=== PATIENT | female | born 1960 | race African-American/Black ===

== ENCOUNTER 2016-06-22 15:33 | Emergency (ER) | payer BC ==
[~2016-06-22] VITALS: Ht 157.5 cm; Wt 111.1 kg
[~2016-06-22 15:33] MED LIST: ACTOS30 MG PO; ALLEGRA D 12 HO1 TER PO; ALLEGRA60 MG PO; ALPRAZOLAM0.25 MG PO; AMARYL 2MG TABLE2 MG PO; AMARYL 4MG. TAB4 MG PO; ATENOLOL25 M1; ATENOLOL25 MG PO; AUGMENTIN 875-1 EACH PO; AZITHROMYCIN250 MG PO; BIOTIN1000 MCG PO; BRINTELLIX10 MG PO; CARAFATE1 GM PO; CELEXA10 MG PO; CIPRO 500MG TA500 MG PO; CIPROFLOXACIN500 MG PO; CLINDAMYCIN HC150 MG PO; DARVOCET-N 1001 EACH PO; DICLOFENAC 50MG50 MG PO; DIFLUCAN 100MG100 MG PO; DIFLUCAN150 MG PO; ESOMEPRAZOLE MA40 M1 PO; FLAGYL 500MG.500 MG PO; FLEXERIL10 MG PO; FLONASE 50 MCG16 GM; GABAPENTIN 100100 MG PO; GLIMEPIRIDE 4MG4 MG; GLIMEPIRIDE 4MG4 MG PO; HYDROCODONE1 TABLET PO; IBUPROFEN200 MG PO; JANUVIA100 MG PO; KEFLEX 500MG.500 MG PO; LORTAB 5/500 501 TAB PO; LOSARTAN POTAS100 MG PO; MEDROL 4MG. DOSE4 MG PO; METFORMIN500 MG PO; MIRALAX17 GM/PACK PO; MOBIC15 MG PO; OXYBUTYNIN5 MG PO; PEPCID40 MG PO; PERCOGESIC1 TAB PO; PLAVIX75 MG PO; PREDNISONE 10MG10 MG PO; PRISTIQ50 MG PO; SKELAXIN 800MG800 MG PO; TAMIFLU 75MG CA75 MG PO; TESSALON PERLE100 M1 PO; TESSALON PERLE100 MG PO; TESSALON PERLE200 MG PO; VENLAFAXINE HYD75 M1 PO; VIBRAMYCIN 100100 MG PO; VISTARIL25 MG PO; VITAMIN A8000 IU PO; VITAMIN D31000 IU PO; XANAX 0.25MG0.25 MG PO; ZANTAC 150150 MG PO; ZITHROMAX Z PA250 MG PO; ZYRTEC-D 12HR 51 TER PO
--- NOTE | 2016-06-22 15:56 | Emergency Room Report ---
History of Present Illness Time Seen by [id number] Presenting Problem in Triage Pt arrived:Wheelchair Presenting Problem:PT STATES HER RIGHT HIP AND RIGHT LEG HAVE HURT FOR 4 DAYS. WEDNESDAY STATES SHE HEARD A POP SOUND WHEN SHE WAS WALKING. STATES SHE IS HAVING DIFFICULTY WALKING. 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 N Clinical Suspician of Infection? N Mental Status: 1 - Regular (Normal Baseline) Sepsis Risk:Low Sepsis Risk Have you (or family members/close friends) recently traveled outside the [place]? N If Yes, where/when: Have you had exposure to infectious disease within the past month? TB? Other? Specify: Patient's been having some RIGHT hip pain couple days ago she felt a pop in her hip pain is worse and radiates down her leg no urinary or bowel incontinence complaints no complaints of abdominal pain as moderate achy RIGHT hip pain worse with ambulation and some numbness that goes down her posterior thigh ALLERGIES Coded Allergies: Sulfa (Sulfonamide Antibiotics) (Mild, HIVES, ITCHING 04/06/16) amoxicillin (From AUGMENTIN) (Mild, NA-NAUSEA 05/29/16) aspirin (Mild, HIVES, ITCHING 04/06/16) clavulanic acid (From AUGMENTIN) (Mild, NA-NAUSEA 05/29/16) hydrocodone (From NORCO) (Mild, HIVES, ITCHING 04/06/16) naproxen (Mild, HIVES, ITCHING 04/06/16) Home Medications Active Scripts Oseltamivir Phosphate (Tamiflu 75MG Capsule) 75 MG PO BID #10 CAP Prov: 05/30/16 Reported Medications Atenolol (Atenolol) 25 MG PO DAILY Metformin HCL (Metformin) 500 MG PO BID Losartan Potassium (Losartan 100MG) 25 MG PO DAILY OXYBUTYNIN CHLORIDE (Oxybutynin 5MG Tab) 5 MG PO BID DICLOFENAC SODIUM (Diclofenac 50MG) 75 MG PO BID Alprazolam (Xanax 0.25MG) 0.25 MG PO BID Glimepiride (Glimepiride 4MG Tablet) 4 MG PO DAILY #30 Fluticasone Propionate (Flonase 50 Mcg Nasal Rodney) 1 SPRAY NA PRN PRN ALLERGIES 60 Days Esomeprazole Magnesium 40 MG PO DAILY #30 Ranitidine Hcl (Zantac) 150 MG PO BID History Medical History General CAD? No Angina: Yes [place]: No Hypertension? Yes Hyperlipidemia? No CHF? No DVT? No PE? No COPD? No Asthma? No Anemia? Yes GERD? No Gastric ulcers? Yes GI Bleed? No Hernia? No Thyroid Problems? No Hypothyroidism? No CVA? No Seizures? No Diabetes? Yes Insulin Dependent: No Insulin Pump: No Home FSBS? Yes Renal Insuffiency? No End Stage Renal Disease? No UTI? Yes Stones? No BPH? No GB Disease: No Nephritic Syndrome? No Asplenia? No Hepatitis? No Sickle Cell Disease? No Arthritis? Yes Migraines? No Cataracts? No Glaucoma? No MRSA? No HIV? No TB? No Anxiety? Yes Depression? Yes Cancer? No More? Yes Additional hx: DEGENERATIVE ARTHRITIS, DEPRESSION, ANXIETY. 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 Eyes: conjunctiva/corneas clear ENT: Mucous membranes moist. Neck: No jugular venous distention. Extremities: no edema Musculoskeletal: right hip tenderness, and tenderness at the RIGHT sciatic notch RIGHT leg raise is negative producing pain only in the buttock strength 5 out of 5 sensations intact light touch Skin: No rashes or lesions to exposed skin. Neurologic: Alert. No gross focal deficits Psychiatric: Normal affect (Jeovany PITTS, [place]) General Appearance normal appearance Respiratory Status No: respiratory distress. Cardiovascular normal exam Neurologic alert Medical Decision Making LABS/Meds/Orders Pt receiving controlled substance in ED? Yes Comment RIGHT hip x-ray read by myself shows no acute disease no fracture shows some arthritis Results/Orders Current Medication Orders Sig/Octavio Start time Last Medication Dose Route Stop Time Status Admin Acetaminophen/ 1 TAB .[NOW] 06/22 1645 r Hydrocodone Bitart PO Orders Procedure Date/time Status HIP RT 2-3V W/PELVIS IF PERFOR 06/22 1547 Active Departure Departure Time of Disposition 1639 Disposition DC Home or Self Care(routine) Clinical Impression Primary Impression: Right hip pain Condition STABLE Referrals Karan PITTS,Germán Chakraborty (Family) Patient Instructions DI for Sciatica Prescriptions Current Visit Scripts OXYCODONE HCL/ACETAMINOPHEN (Percocet 5-325 MG Tablet) 1 TAB PO TIDP PRN BREAKTHROUGH MOD TO SEV PAIN #10 TAB ED Critical Care Critical Care No If Critical Care minutes are documented, the time involved in the performance of seperately reportable procedures was not counted toward critical care time documented. I directly delivered medical care to this critically ill and/or injured patient. Timely evaluation and treatment was necessary to address the significant organ system(s) dysfunction present in this patient. at 1645
[2016-06-22] MEDS ORDERED: PERCOCET1 TAB PO (16:44)
[2016-06-22 16:54] VITALS: BP 182/99
--- NOTE | 2016-06-22 18:12 | RADIOLOGY REPORT PS360 ---
HIP RT 2-3V W/PELVIS IF PERFOR COMPARISON: Right hip 01/18/2016 HISTORY: Right hip pain TECHNIQUE: AP pelvis cone-down AP and frog views right hip FINDINGS: There is mild sclerosis of the iliac side of both SI joints. Both hips are normally articulated. There is very minor spurring of the acetabulum both superiorly and inferiorly. There is no significant joint space narrowing. There are no soft tissue calcifications. IMPRESSION: Findings suggesting mild bilateral sacroiliitis, there is a very mild osteoarthritic change right hip
== END 2016-06-22 16:55 | disposition home or self-care (01) ==
LOC: ER 15:33
DX: M25.551 Pain in right hip (principal); I10 Essential (primary) hypertension; Z72.0 Tobacco use

== ENCOUNTER 2016-12-03 15:48 | Emergency (ER) | payer BC ==
[~2016-12-03] VITALS: Ht 157.5 cm; Wt 110.2 kg
[~2016-12-03 15:48] MED LIST changes: +CRESTOR10 MG PO; +DULOXETINE 30MG30 MG FT; +FOLBIC RF1 TAB PO; +NEXIUM40 MG/PACK PO; +PERCOCET1 TAB PO; +TYLENOL WITH CO1 TA1 PO
[2016-12-03 16:07] LABS: HEMOGLOBIN 13.4 g/dL (12.2-16.2); LYMPH # 2.5 K/mm3 (0.7-4.5); LYMPH % 28.3 % (10-50.0)
--- NOTE | 2016-12-03 16:10 | Emergency Room Report ---
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 Clinical Suspician of Infection? Mental Status: Sepsis Risk: Have you (or family members/close friends) recently traveled outside the [place]? If Yes, where/when: Have you had exposure to infectious disease within the past month? TB? Other? Specify: Patient reports has had a facial droop for one month. She also states that over the past few months she has had episodes of right arm weakness and mouth numbness intermittently, unspecified time frame, but always self resolving, and awakened this morning with similar symptoms, which have not gone away. Last known normal was last night at bedtime. ALLERGIES Coded Allergies: Sulfa (Sulfonamide Antibiotics) (Mild, HIVES, ITCHING 04/06/16) amoxicillin (From AUGMENTIN) (Mild, NA-NAUSEA 05/29/16) aspirin (Mild, HIVES, ITCHING 04/06/16) clavulanic acid (From AUGMENTIN) (Mild, NA-NAUSEA 05/29/16) hydrocodone (From NORCO) (Mild, HIVES, ITCHING 04/06/16) naproxen (Mild, HIVES, ITCHING 04/06/16) Home Medications Reported Medications Atenolol (Atenolol) 25 MG PO DAILY Metformin HCL (Metformin) 500 MG PO BID Losartan Potassium (Losartan 100MG) 25 MG PO DAILY OXYBUTYNIN CHLORIDE (Oxybutynin 5MG Tab) 5 MG PO BID Alprazolam (Xanax 0.25MG) 0.25 MG PO BID Glimepiride (Glimepiride 4MG Tablet) 4 MG PO DAILY #30 Duloxetine Hcl (Duloxetine 30MG Capsule) 20 MG FT DAILY Rosuvastatin Calcium (Crestor) 10 MG PO QHS Esomeprazole Magnesium (Nexium) 40 MG PO DAILY CHOLECALCIFEROL (VITAMIN D3) (Vitamin D) 50,000 IUNITS PO DAILY B12/LEVOMEFOLATE CALCIUM/B-6 (Folbic Rf Tablet) 1 TAB PO DAILY DICLOFENAC SODIUM (Diclofenac 50MG) 75 MG PO BID PRN PAIN DULOXETINE HCL (Cymbalta) 20 MG PO DAILY History Medical History General CAD? No Angina: Yes [place]: No Hypertension? Yes Hyperlipidemia? No CHF? No DVT? No PE? No COPD? No Asthma? No Anemia? Yes GERD? No Gastric ulcers? Yes GI Bleed? No Hernia? No Thyroid Problems? No Hypothyroidism? No CVA? No Seizures? No Diabetes? Yes Insulin Dependent: No Insulin Pump: No Home FSBS? Yes Renal Insuffiency? No End Stage Renal Disease? No UTI? Yes Stones? No BPH? No GB Disease: No Nephritic Syndrome? No Asplenia? No Hepatitis? No Sickle Cell Disease? No Arthritis? Yes Migraines? No Cataracts? No Glaucoma? No MRSA? No HIV? No TB? No Anxiety? Yes Depression? Yes Cancer? No More? Yes Additional hx: DEGENERATIVE ARTHRITIS, DEPRESSION, ANXIETY. Immunization Hx DT/Tetanus 1-4 YRS Flu LAST YEAR Pneumonia NEVER Surgical Hx Previous Surgery?Y D & C Tubal Ligation CONE BX BARTHOLIN'S CYST HYSTERECTOMY 2000 CARPEL TUNNEL SURGERY HEART CATH ENDOCSOPY COLONOSCOPY Family History Family Hx Diabetes Yes CAD No Hypertension No Hyperlipidemia No Cancer No TB Yes Social History Smoking Hx Packs/day < 1 Pack Alcohol Alcohol: No Review of Systems All Other Systems Reviewed and Negative Psychiatric/Neurological see HPI Physical Exam Vital Signs Vital Signs Date Time Temp Pulse Resp B/P Pulse O2 O2 Flow FiO2 Ox Delivery Rate 12/03 1718 72 20 159/100 95 12/03 1636 78 20 153/100 95 12/03 1554 98.2 79 20 167/94 96 General Appearance normal appearance, WD/WN, no apparent distress Eye Exam - bilateral eye normal exam, bilateral eye PERRL, bilateral eye EOMI Neck normal inspection, non-tender, supple, full range of motion Respiratory Status Yes: trachea midline, chest symmetrical, non tender chest. No: respiratory distress, tender on palpation, use of accessory muscles, pain on inspiration, pain on expiration, productive cough, non productive cough. Lung Sounds bilateral: normal breath sounds, lungs clear. Cardiovascular normal exam, regular rate/rhythm, no peripheral edema, no gallop, no JVD, no murmur, no rub, normal peripheral pulses Gastrointestinal normal bowel sounds, normal exam, non tender, soft, no organomegaly, no pulsatile mass, no guarding, no rebound Extremities non-tender, normal range of motion, normal inspection, no calf tenderness, no pedal edema Strength 4 Upper Ext (R), 5 Upper Ext (L), 5 Lower Ext (L), 5 Lower Ext (R) Neurologic alert, NIHSS 4: see above; has subjective numbness R cheek; has slight facial droop on right; finger to nose is slow but normal bilaterally but has a little bit of drift, RUE. Glascow Coma Scale Glascow Coma Scale Response Value EYE response: 4 Spontaneously 4 MOTOR response: 6 OBEYS 6 VERBAL response: 5 Oriented & Converses 5 Total 15 Reflexes DTR 2+ ankle (R), 2+ ankle (L) Skin intact, normal color, warm/dry Stroke Score/Tx Stroke Evaluation Initial symptoms indicative of possible stroke? Yes NIH STROKE SCORE NIH STROKE SCORE Response Value 1a.Level of Consciousness ALERT 0 1b.LOC Questions ANSWERS BOTH CORRECTLY 0 1c.LOC Commands OBEYS BOTH CORRECTLY 0 2 .Best Gaze NORMAL 0 3 .Visual NO VISUAL LOSS 0 4 .Facial Palsy MINOR 1 5a.Motor Arm Left NO DRIFT 0 5b.Motor Arm Right DRIFT 1 6a.Motor Leg Left NO DRIFT 0 6b.Motor Leg Right NO DRIFT 0 7 .Limb Ataxia ABSENT 0 8 .Sensory PARTIAL LOSS 1 10.Dysarthria NORMAL ARTICULATION 0 ED.NIH11 NO NEGLECT 0 Total 3 Treatment Consideration t-PA ordered? No Medical Decision Making LABS/Meds/Orders Pt receiving controlled substance in ED? No Results/Orders Laboratory Tests 12/03/16 1635: POC Glucose 110 12/03/16 1555: Sodium 141, Potassium 4.0, Chloride 104, Carbon Dioxide 28, BUN 19 H, Creatinine 0.9, Estimated Creat Clear 123, Estimated GFR (MDRD) 65, Glucose 100, Calcium 9.8, Total Bilirubin 0.3, AST 26, ALT 29, Alkaline Phosphatase 139 H, Creatine Kinase 66, CK-MB (CK-2) Rel Index 1.2, CK and CKMB Interp 0.8, Troponin I < 0.02, Total Protein 9.1 H, Albumin 3.7, Globulin 5.4 H, Albumin/Globulin Ratio 0.7 L, WBC 8.9, RBC 4.68, Hgb 13.4, Hct 40.7, MCV 87.1, RDW 15.3, Plt Count 338, MPV 7.9, Gran % 61.7, Gran # 5.5, Lymphocytes % 28.3, Monocytes % 5.6 , Eosinophils % 3.7, Basophils % 0.6, Lymphocytes # 2.5, Monocytes # 0.5, Eosinophils # 0.3, Basophils # 0.1, PUBS MCHC 32.9, MCH 28.6 Current Medication Orders Sig/Octavio Start time Last Medication Dose Route Stop Time Status Admin Sodium Chloride 10 ML PRN PRN 12/03 1600 AC IV 12/04 1559 Orders Procedure Date/time Status DIET-NOTHING BY MOUTH 12/03 D Active FINGERSTICK BLOOD SUGAR 12/03 1635 Complete 12 LEAD EKG-BESSON (INITIAL) 12/03 1600 Active ELECTROCARDIOGRAM REQUEST 12/[address] HEAD REQ 12/03 1600 Complete IV SALINE LOCK 12/03 1600 Active CBC WITH AUTO DIFF 12/03 1600 Complete CARDIAC ENZYMES 12/03 1600 Complete CHEM 12 PROFILE 12/03 1600 Complete XRAY/CT/US XRAY/CT/US XR interpretation by reviewed by me (report reviewed) Xray Results normal/NAD, no infiltrates, normal heart size, normal lung inflation shelley CT head CT interpretation by reviewed by me Time results known: 1631 CT Results normal/NAD (no acute findings per rad) Consult MD Physician Consult Consult/PCP Dr. Linton stroke: send to [facility] for further eval Time Called 1652 Reason Neuro eval/care Progress ED Progress Notes Time 1723 Comment Patient refusing transfer. Unable to admit to this facility as no neurology consultation service. Patient and family discussing options with recommendation from this MD as well as neurologist on stroke team at for evaluation at by neurology service. Departure Departure Time of Disposition 1732 Disposition DC/XFER from ER to [facility] Clinical Impression Primary Impression: Right arm weakness Secondary Impressions: Right facial numbness Condition STABLE Referrals Karan PITTS,Germán Chakraborty (Family) ED Critical Care Critical Care No at [id number]
--- NOTE | 2016-12-03 16:24 | RADIOLOGY REPORT PS360 ---
CHEST-AP VIEW ONLY HISTORY: RIGHT SIDED WEAKNESS ORDERING PHYSICIAN: Carli Wilks MD PATIENT AGE: 56 years COMPARISON: None available FINDINGS: The cardiomediastinal silhouette and pulmonary vascularity are within normal limits. The lungs are clear without infiltrates, suspicious nodules, or pleural effusions. No acute bony abnormalities. IMPRESSION: Negative chest, no acute finding
[2016-12-03] MEDS ORDERED: DICLOFENAC 50MG50 MG PO (16:25)
[2016-12-03] MEDS ORDERED: CYMBALTA20 MG PO (16:26)
--- NOTE | 2016-12-03 16:28 | RADIOLOGY REPORT PS360 ---
CT HEAD W/O CONTRAST HISTORY: RIGHT SIDED WEAKNESS DIZZINESS ORDERING PHYSICIAN: Carli Wilks MD PATIENT AGE: 56 years COMPARISON: 02/18/2012 TECHNIQUE: Axial images obtained without contrast. Brain and bone windows reviewed. FINDINGS: No midline shift, mass effect, intracranial hemorrhage, hydrocephalus, or extra-axial fluid collection is evident. Nonspecific hypoattenuation is present in the periventricular white matter as before. The calvarium has an unremarkable appearance. No mastoid effusion. The visualized paranasal sinuses are unremarkable. IMPRESSION: 1. No acute intracranial findings. 2. Nonspecific white matter changes probably related to ischemic gliotic change from small vessel disease similar to the previous exam. 3. There is no evidence of intracranial hemorrhage, focal mass, or acute territorial infarction. A negative CT does not exclude an acute CVA. A follow-up head CT or MRI is recommended if neurological symptoms persist
[2016-12-03 16:32] LABS: BUN 19 mg/dL (7-18)
[2016-12-03 16:33] LABS: GFR (ESTIMATED) 65 ML/MIN (59-)
[2016-12-03 18:16] VITALS: BP 159/100
== END 2016-12-03 18:17 | disposition short-term general hospital (02) ==
LOC: ER 15:48
PROVIDERS: Emergency Medicine
DX: R29.810 Facial weakness (principal); M62.81 Muscle weakness (generalized); Z79.899 Other long term (current) drug therapy; I10 Essential (primary) hypertension; E11.9 Type 2 diabetes mellitus without complications; R29.703 NIHSS score 3

== ENCOUNTER 2017-01-02 19:33 | Emergency (ER) | payer BC ==
[~2017-01-02] VITALS: Ht 157.5 cm; Wt 107.5 kg
[~2017-01-02 19:33] MED LIST changes: +CYMBALTA20 MG PO
--- NOTE | 2017-01-02 20:14 | Emergency Room Report ---
History of Present Illness Time Seen by 2000 Presenting Problem in Triage Pt arrived:Walked Presenting Problem:SENT FROM [facility] FOR POSSIBLE NICOTINE POISONING. STARTED NICOTINE PATCH ON WEDNESDAY. REPORTS WEEPING AT THE SITES OF PATCH PLACEMENT, AND SEVERE NAUSEA VOMITING SINCE. 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 N Clinical Suspician of Infection? N Mental Status: 1 - Regular (Normal Baseline) Sepsis Risk:Low Sepsis Risk Have you (or family members/close friends) recently traveled outside the [place]? N If Yes, where/when: Have you had exposure to infectious disease within the past month? N TB? Other? Specify: Source patient, RN notes reviewed, family, old records Exam Limitations no limitations Comment after using nicotene patch for 5 days has nausea and also has intolerance of wellbutrin - no chest pain Cardiac Chest Pain Chest pain indicative of cardiac No Timing/Duration this evening Severity moderate ALLERGIES Coded Allergies: Sulfa (Sulfonamide Antibiotics) (Mild, HIVES, ITCHING 04/06/16) amoxicillin (From AUGMENTIN) (Mild, NA-NAUSEA 05/29/16) clavulanic acid (From AUGMENTIN) (Mild, NA-NAUSEA 05/29/16) hydrocodone (From NORCO) (Mild, HIVES, ITCHING 04/06/16) naproxen (Mild, HIVES, ITCHING 04/06/16) Home Medications Reported Medications Metformin HCL (Metformin) 500 MG PO BID Losartan Potassium (Losartan 100MG) 100 MG PO DAILY OXYBUTYNIN CHLORIDE (Oxybutynin 5MG Tab) 5 MG PO BID Alprazolam (Xanax 0.25MG) 0.25 MG PO BID Glimepiride (Glimepiride 4MG Tablet) 4 MG PO DAILY #30 Rosuvastatin Calcium (Crestor) 10 MG PO QHS Esomeprazole Magnesium (Nexium) 40 MG PO DAILY CHOLECALCIFEROL (VITAMIN D3) (Vitamin D) 50,000 IUNITS PO DAILY History Medical History General CAD? No Angina: Yes [place]: No Hypertension? Yes Hyperlipidemia? No CHF? No DVT? No PE? No COPD? No Asthma? No Anemia? Yes GERD? No Gastric ulcers? Yes GI Bleed? No Hernia? No Thyroid Problems? No Hypothyroidism? No CVA? No Seizures? No Diabetes? Yes Insulin Dependent: No Insulin Pump: No Home FSBS? Yes Renal Insuffiency? No End Stage Renal Disease? No UTI? Yes Stones? No BPH? No GB Disease: No Nephritic Syndrome? No Asplenia? No Hepatitis? No Sickle Cell Disease? No Arthritis? Yes Migraines? No Cataracts? No Glaucoma? No MRSA? No HIV? No TB? No Anxiety? Yes Depression? Yes Cancer? No More? Yes Additional hx: DEGENERATIVE ARTHRITIS, DEPRESSION, ANXIETY. 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 Respiratory denies cough, denies shortness of breath, denies wheezing Cardiovascular denies chest pain, denies syncope Gastrointestinal see HPI, denies abdominal pain, nausea, vomiting Genitourinary denies: dysuria, frequency, hesitancy, hematuria. Musculoskeletal denies back pain, denies joint pain, denies joint swelling, denies neck pain Skin denies rash Psychiatric/Neurological denies headache, denies seizure Physical Exam Vital Signs Vital Signs Date Time Temp Pulse Resp B/P Pulse O2 O2 Flow FiO2 Ox Delivery Rate 01/02 2053 76 16 156 99 01/02 194 98.9 69 16 99 - WBC >12,000 or <4,000 or 10% bands? 2 or more SIRS Criteria Met? B/P: MAP:130 Creatinine >2.0? UA output<0.5ml/kg/hr for 2 hrs? Platelet count >100,000? Lactate >2.0mmol/1? INR >1.2 or PTT > than 60 sec? Evidence of Organ Dysfunction? Provider documented clinical suspician of infection? N Sepsis Criteria Count: 0 Sepsis Risk: Low Sepsis Risk General Appearance no apparent distress Eye Exam - bilateral eye PERRL, bilateral eye EOMI Ear, Nose, Throat normal ENT inspection Neck non-tender Respiratory Status No: respiratory distress. Cardiovascular regular rate/rhythm Peripheral Pulses Pulses normal Yes Extremities normal inspection Strength 4 Upper Ext (L), 4 Upper Ext (R), 4 Lower Ext (L), 4 Lower Ext (R) Neurologic alert, ctrs II-XII nml as tested, no motor/sensory deficits Reflexes Reflexes normal No Mental status normal mood/affect Skin intact Medical Decision Making LABS/Meds/Orders Pt receiving controlled substance in ED? No Results/Orders Laboratory Tests 01/02/172014: Sodium 134 L, Potassium 3.4 L, Chloride 100, Carbon Dioxide 26, BUN 13, Creatinine 1.0, Estimated Creat Clear 108, Estimated GFR (MDRD) 58 L, Glucose 199 H, Calcium 9.2, Total Bilirubin 0.2, AST 14 L, ALT 22, Alkaline Phosphatase 131 H, Creatine Kinase 46, CK-MB (CK-2) Rel Index 1.5, CK and CKMB Interp 0.7, Troponin I < 0.02, Total Protein 8.2, Albumin 3.3 L, Globulin 4.9 H, Albumin/Globulin Ratio 0.7 L, WBC 8.8, RBC 4.50, Hgb 12.6, Hct 38.9, MCV 86.5, RDW 15.4, Plt Count 312, MPV 7.9, Gran % 67.2, Gran # 5.9, Lymphocytes % 25.1, Monocytes % 4.0, Eosinophils % 3.1, Basophils % 0.5, Lymphocytes # 2.2, Monocytes # 0.4, Eosinophils # 0.3, Basophils # 0.0, PUBS MCHC 32.3, MCH 27.9 Current Medication Orders Sig/Octavio Start time Last Medication Dose Route Stop Time Status Admin Sodium Chloride 10 ML PRN PRN 01/03 2000 AC IV 01/04 1952 Orders Procedure Date/time Status IV SALINE LOCK 01/03 1952 Active CBC WITH AUTO DIFF 01/03 1952 Complete CARDIAC ENZYMES 01/03 1952 Complete CHEM 12 PROFILE 01/03 1952 Complete Departure Departure Time of Disposition 2046 Disposition DC Home or Self Care(routine) Clinical Impression Primary Impression: Adverse effects of medication Qualifiers: Encounter type: initial encounter Qualified Code: T88.7XXA - Unspecified adverse effect of drug or medicament, initial encounter Condition STABLE Patient Instructions DI for Vomiting -- Adult Additional Instructions call pcp and card wednesday Discharge Counseling Counseled pt/family regarding diagnosis, test results, follow up needs ED Critical Care Critical Care No at [id number]
--- NOTE | 2017-01-02 20:14 | Emergency Room Report ---
History of Present Illness Time Seen by 2000 Presenting Problem in Triage Pt arrived:Walked Presenting Problem:SENT FROM [facility] FOR POSSIBLE NICOTINE POISONING. STARTED NICOTINE PATCH ON WEDNESDAY. REPORTS WEEPING AT THE SITES OF PATCH PLACEMENT, AND SEVERE NAUSEA VOMITING SINCE. 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 N Clinical Suspician of Infection? N Mental Status: 1 - Regular (Normal Baseline) Sepsis Risk:Low Sepsis Risk Have you (or family members/close friends) recently traveled outside the [place]? N If Yes, where/when: Have you had exposure to infectious disease within the past month? N TB? Other? Specify: Source patient, RN notes reviewed, family, old records Exam Limitations no limitations Comment after using nicotene patch for 5 days has nausea and also has intolerance of wellbutrin - no chest pain Cardiac Chest Pain Chest pain indicative of cardiac No Timing/Duration this evening Severity moderate ALLERGIES Coded Allergies: Sulfa (Sulfonamide Antibiotics) (Mild, HIVES, ITCHING 04/06/16) amoxicillin (From AUGMENTIN) (Mild, NA-NAUSEA 05/29/16) clavulanic acid (From AUGMENTIN) (Mild, NA-NAUSEA 05/29/16) hydrocodone (From NORCO) (Mild, HIVES, ITCHING 04/06/16) naproxen (Mild, HIVES, ITCHING 04/06/16) Home Medications Reported Medications Metformin HCL (Metformin) 500 MG PO BID Losartan Potassium (Losartan 100MG) 100 MG PO DAILY OXYBUTYNIN CHLORIDE (Oxybutynin 5MG Tab) 5 MG PO BID Alprazolam (Xanax 0.25MG) 0.25 MG PO BID Glimepiride (Glimepiride 4MG Tablet) 4 MG PO DAILY #30 Rosuvastatin Calcium (Crestor) 10 MG PO QHS Esomeprazole Magnesium (Nexium) 40 MG PO DAILY CHOLECALCIFEROL (VITAMIN D3) (Vitamin D) 50,000 IUNITS PO DAILY History Medical History General CAD? No Angina: Yes CT: No Hypertension? Yes Hyperlipidemia? No CHF? No DVT? No PE? No COPD? No Asthma? No Anemia? Yes GERD? No Gastric ulcers? Yes GI Bleed? No Hernia? No Thyroid Problems? No Hypothyroidism? No CVA? No Seizures? No Diabetes? Yes Insulin Dependent: No Insulin Pump: No Home FSBS? Yes Renal Insuffiency? No End Stage Renal Disease? No UTI? Yes Stones? No BPH? No GB Disease: No Nephritic Syndrome? No Asplenia? No Hepatitis? No Sickle Cell Disease? No Arthritis? Yes Migraines? No Cataracts? No Glaucoma? No MRSA? No HIV? No TB? No Anxiety? Yes Depression? Yes Cancer? No More? Yes Additional hx: DEGENERATIVE ARTHRITIS, DEPRESSION, ANXIETY. 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 Respiratory denies cough, denies shortness of breath, denies wheezing Cardiovascular denies chest pain, denies syncope Gastrointestinal see HPI, denies abdominal pain, nausea, vomiting Genitourinary denies: dysuria, frequency, hesitancy, hematuria. Musculoskeletal denies back pain, denies joint pain, denies joint swelling, denies neck pain Skin denies rash Psychiatric/Neurological denies headache, denies seizure Physical Exam Vital Signs Vital Signs Date Time Temp Pulse Resp B/P Pulse O2 O2 Flow FiO2 Ox Delivery Rate 01/02 2053 76 16 156 99 01/02 194 98.9 69 16 99 - WBC >12,000 or <4,000 or 10% bands? 2 or more SIRS Criteria Met? B/P: MAP:130 Creatinine >2.0? UA output<0.5ml/kg/hr for 2 hrs? Platelet count >100,000? Lactate >2.0mmol/1? INR >1.2 or PTT > than 60 sec? Evidence of Organ Dysfunction? Provider documented clinical suspician of infection? N Sepsis Criteria Count: 0 Sepsis Risk: Low Sepsis Risk General Appearance no apparent distress Eye Exam - bilateral eye PERRL, bilateral eye EOMI Ear, Nose, Throat normal ENT inspection Neck non-tender Respiratory Status No: respiratory distress. Cardiovascular regular rate/rhythm Peripheral Pulses Pulses normal Yes Extremities normal inspection Strength 4 Upper Ext (L), 4 Upper Ext (R), 4 Lower Ext (L), 4 Lower Ext (R) Neurologic alert, child specialist II-XII nml as tested, no motor/sensory deficits Reflexes Reflexes normal No Mental status normal mood/affect Skin intact Medical Decision Making LABS/Meds/Orders Pt receiving controlled substance in ED? No Results/Orders Laboratory Tests 01/02/172014: Sodium 134 L, Potassium 3.4 L, Chloride 100, Carbon Dioxide 26, BUN 13, Creatinine 1.0, Estimated Creat Clear 108, Estimated GFR (MDRD) 58 L, Glucose 199 H, Calcium 9.2, Total Bilirubin 0.2, AST 14 L, ALT 22, Alkaline Phosphatase 131 H, Creatine Kinase 46, CK-MB (CK-2) Rel Index 1.5, CK and CKMB Interp 0.7, Troponin I < 0.02, Total Protein 8.2, Albumin 3.3 L, Globulin 4.9 H, Albumin/Globulin Ratio 0.7 L, WBC 8.8, RBC 4.50, Hgb 12.6, Hct 38.9, MCV 86.5, RDW 15.4, Plt Count 312, MPV 7.9, Gran % 67.2, Gran # 5.9, Lymphocytes % 25.1, Monocytes % 4.0, Eosinophils % 3.1, Basophils % 0.5, Lymphocytes # 2.2, Monocytes # 0.4, Eosinophils # 0.3, Basophils # 0.0, PUBS MCHC 32.3, MCH 27.9 Current Medication Orders Sig/Octavio Start time Last Medication Dose Route Stop Time Status Admin Sodium Chloride 10 ML PRN PRN 01/03 2000 AC IV 01/04 1952 Orders Procedure Date/time Status IV SALINE LOCK 01/03 1952 Active CBC WITH AUTO DIFF 01/03 1952 Complete CARDIAC ENZYMES 01/03 1952 Complete CHEM 12 PROFILE 01/03 1952 Complete Departure Departure Time of Disposition 2046 Disposition DC Home or Self Care(routine) Clinical Impression Primary Impression: Adverse effects of medication Qualifiers: Encounter type: initial encounter Qualified Code: T88.7XXA - Unspecified adverse effect of drug or medicament, initial encounter Condition STABLE Patient Instructions DI for Vomiting -- Adult Additional Instructions call pcp and card wednesday Discharge Counseling Counseled pt/family regarding diagnosis, test results, follow up needs ED Critical Care Critical Care No at [id number]
[2017-01-02 20:22] LABS: HEMOGLOBIN 12.6 g/dL (12.2-16.2); LYMPH # 2.2 K/mm3 (0.7-4.5); LYMPH % 25.1 % (10-50.0)
[2017-01-02 20:49] LABS: BUN 13 mg/dL (7-18)
[2017-01-02 20:51] LABS: GFR (ESTIMATED) 58 ML/MIN (59-)
[2017-01-02 21:13] VITALS: BP 156/94
== END 2017-01-02 21:13 | disposition home or self-care (01) ==
LOC: UTC 19:33 → ER 19:38 → UTC 19:38 → ER 21:13
PROVIDERS: Emergency Medicine
DX: T44.1X1A Poisoning by other parasympathomimetics [cholinergics], accidental (unintentional), initial encounter (principal); R11.2 Nausea with vomiting, unspecified; Z88.2 Allergy status to sulfonamides; Z88.1 Allergy status to other antibiotic agents; Z88.6 Allergy status to analgesic agent; Z79.84 Long term (current) use of oral hypoglycemic drugs; I10 Essential (primary) hypertension; D64.9 Anemia, unspecified; E11.9 Type 2 diabetes mellitus without complications; Z87.891 Personal history of nicotine dependence

== ENCOUNTER → 2017-01-05 | Outpatient (CLI) | payer BC ==
--- NOTE | 2017-01-05 08:36 | CARDIOVASCULAR REPORT ---
"Cerebrovascular Exam IMPRESSIONS 1. The bilateral vertebral arteries are patent with normal antegrade flow. 2. Study suggests less than 20% stenosis involving the right internal carotid artery and the left internal carotid artery. History: Transient ischemic attack. Risk factors: Former smoker - years since quittin.5yr. Hypertension. Diabetes mellitus. Carotid duplex study. Complete study and Doppler flow study including spectral analysis, color and vo scale imaging. Location: Vascular laboratory. Patient status: Outpatient. Tables: Arterial flow: + +--------+--------+ |Location |V sys |V ed | + +--------+--------+ |Right CCA - proximal|75.4cm/s|16.1cm/s| + +--------+--------+ |Right CCA - distal |82.4cm/s|28.6cm/s| + +--------+--------+ |Right ECA |108cm/s |--------| + +--------+--------+ |Right ICA - proximal|56.6cm/s|18.2cm/s| + +--------+--------+ |Right ICA - mid |95cm/s |34.9cm/s| + +--------+--------+ |Right ICA - distal |69cm/s |26.1cm/s| + +--------+--------+ |Right vertebral |54.5cm/s|--------| + +--------+--------+ |Left CCA - proximal |86.6cm/s|22.3cm/s| + +--------+--------+ |Left CCA - distal |79.6cm/s|22.3cm/s| + +--------+--------+ |Left ECA |76.1cm/s|--------| + +--------+--------+ |Left ICA - proximal |85.2cm/s|33.5cm/s| + +--------+--------+ |Left ICA - mid |101cm/s |34.2cm/s| + +--------+--------+ |Left ICA - distal |88.7cm/s|34.9cm/s| + +--------+--------+ |Left vertebral |49cm/s |--------| + +--------+--------+ Velocity ratios: + + + + + + | |Right, V sys|Right, V ed|Left, V sys|Left, V ed| + + + + + + |Max ICA/dist CCA|1.15 |1.22 |1.27 |1.57 | + + + + + + (Report amended ) Electronically signed by: Ryan Vizcaino [id number]"
== END ==
LOC: RT 07:49
DX: R07.9 Chest pain, unspecified (principal); I10 Essential (primary) hypertension; R06.00 Dyspnea, unspecified; I50.30 Unspecified diastolic (congestive) heart failure; Z86.73 Personal history of transient ischemic attack (TIA), and cerebral infarction without residual deficits

== ENCOUNTER 2017-02-21 20:41 | Emergency (ER) | payer BC ==
[~2017-02-21] VITALS: Ht 157.5 cm; Wt 108.9 kg
--- OUTSIDE RECORDS SUMMARY | 2017-02-21 20:47 | External Medical Summary Rpt | CCD ---
Author Author , ASHLEY RAMIREZ Address Unknown Phone [email or web address] Care Team Providers Care Home Appliance Installer Name Role Phone Stanley Russo MD, Unavailable Unavailable Stanley FERNANDES MD, Unavailable Unavailable ALEXIS Lopez MD, Unavailable Unavailable Fredy Lopez MD Purpose Continuity of Care Document - 06-20-2012 through 2016 Problems Code Diagnosis DOS Provider Status D64.9 Anemia, 12-10-2016 unspecified E11.65 Type 2 12-10-2016 diabetes mellitus with hyperglycem ia E66.9 Obesity, 12-10-2016 unspecified F17.210 Nicotine 12-10-2016 dependence, cigarettes, uncomplicat ed F32.9 Major 12-10-2016 depressive disorder, single episode, unspecified F41.9 Anxiety 12-10-2016 disorder, unspecified G81.91 Hemiplegia, 12-10-2016 unspecified affecting right dominant side G89.29 Other 12-10-2016 chronic pain I10 Essential 12-10-2016 (primary) hypertensio n I25.10 Atheroscler 12-10-2016 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 angina pectoris I63.9 Cerebral 12-10-2016 infarction, unspecified I99.8 Other 12-10-2016 disorder of circulatory system K21.9 Gastro-esop 12-10-2016 hageal reflux disease without esophagitis M19.90 Unspecified 12-10-2016 osteoarthri tis, unspecified site M75.91 Shoulder 12-10-2016 lesion, unspecified , right shoulder R29.810 Facial 12-10-2016 weakness R42 Dizziness 12-10-2016 and giddiness R47.81 Slurred 12-10-2016 speech Z68.41 Body mass 12-10-2016 index (BMI) 40.0-44.9, adult Z87.11 Personal 12-10-2016 history of peptic ulcer disease 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 Z91.81 History of 12-10-2016 falling R29.898 Other 12-04-2016 symptoms and signs involving the musculoskel etal system 250.00 250.00 DIAB 02-20-2013 [place]is IVANIA WO [facility] COMPL, TYPE Hospital II OR UNSPEC TYPE, NOT UNCNTRLD 305.1 305.1 02-20-2013 Alexis TOBACCO USE [facility] DISORDER Hospital 401.9 401.9 02-20-2013 [place] HYPERTENSIO [facility] N NOS Hospital 413.9 413.9 02-20-2013 Alexis ANGINA [facility] PECTORIS Hospital NEC/NOS 466.0 466.0 ACUTE 02-20-2013 Alexis BRONCHITIS [facility] V14.8 V14.8 02-20-2013 Alexis HX-DRUG [facility] ALLERGY [facility] Hospital 360.00 360.00 12-17-2012 [place] PURULENT [facility] ENDOPHTHALM Hospital NOS 787.23 787.23 06-20-2012 [place] DYSPHAGIA, [facility] PHARYNGEAL Hospital PHASE B37.3 CANDIDIASIS OF VULVA AND VAGINA E11.40 TYPE 2 DIABETES MELLITUS WITH DIABETIC NEUROPATHY, UNSP E11.9 TYPE 2 DIABETES MELLITUS WITHOUT COMPLICATIO NS F41.0 PANIC DISORDER WITHOUT AGORAPHOBIA [id number] J01.90 ACUTE SINUSITIS, UNSPECIFIED J02.8 ACUTE PHARYNGITIS DUE TO OTHER SPECIFIED ORGANISMS J02.9 ACUTE PHARYNGITIS , UNSPECIFIED J11.1 FLU DUE TO UNIDENTIFIE D INFLUENZA VIRUS W OTH RESP MANIFEST M25.551 PAIN IN RIGHT HIP M25.552 PAIN IN LEFT HIP M75.81 OTHER SHOULDER LESIONS, RIGHT SHOULDER N39.0 URINARY TRACT INFECTION, SITE NOT SPECIFIED R07.9 CHEST PAIN, UNSPECIFIED R10.9 UNSPECIFIED ABDOMINAL PAIN R19.7 DIARRHEA, UNSPECIFIED R20.0 ANESTHESIA OF SKIN R53.1 WEAKNESS R74.8 ABNORMAL LEVELS OF OTHER SERUM ENZYMES R94.31 ABNORMAL ELECTROCARD IOGRAM [ECG] [EKG] S50.10XA CONTUSION OF UNSPECIFIED FOREARM, INITIAL ENCOUNTER S70.00XA CONTUSION OF UNSPECIFIED HIP, INITIAL ENCOUNTER S93.401A SPRAIN OF UNSPECIFIED LIGAMENT OF RIGHT ANKLE, INIT ENCNTR T88.7XXA UNSP ADVERSE EFFECT OF DRUG OR MEDICAMENT, INIT ENCNTR Allergies, Adverse Reactions, Alerts Type Drug Allergy Adverse Reaction to Substance Substance Reaction Severity SULFA (sulfonamide) T-[id number]/THROAT Severe Aspirin Unknown Intermediate Naproxen I-ITCHING Intermediate Hydrocodone S-DIFF. BREATHING Unknown Medications Na ND Rx Da Fi Fi Am Da Di Ph RX Ph St me C No te ll ll ou ys ag ar # ys at rm s nt no ma ic us Or Da si cy ia de te s n re d CE 62 11 0 No PH 75 -1 AL 60 1- Lo EX 29 20 ng IN 48 13 er 8 50 Ac 0 ti MG ve CA PS UL E BE 57 11 0 No NZ 66 -1 ON 40 1- Lo AT 13 20 ng AT 38 13 er E 8 10 Ac 0 ti MG ve CA PS UL E FL 00 11 0 No UC 17 -1 ON 25 1- Lo AZ 41 20 ng OL 14 13 er E 6 10 Ac 0 ti MG ve TA BL ET RA 55 03 0 No D- 39 -1 GL 00 1- Lo UC 00 20 ng AG 40 13 er ON 1A Ac 1M ti G/ ve ML IN JE CT IO N Vital Signs 02-20-2013 00:27 Name Value Interpretat Reference Comment ion Range Body 98.5 [degF] Temperature BP 100 mm[Hg] Diastolic BP Systolic 139 mm[Hg] Heart 80 /min Rate/Pulse O2% 98 % Respiratory 18 /min Rate 02-20-2013 00:05 Name Value Interpretat Reference Comment ion Range BP 108 mm[Hg] Diastolic BP Systolic 163 mm[Hg] Heart 84 /min Rate/Pulse O2% 98 % Respiratory 20 /min Rate 12-17-2012 18:47 Name Value Interpretat Reference Comment ion Range BP 66 mm[Hg] Diastolic BP Systolic 143 mm[Hg] Heart 98 /min Rate/Pulse O2% 97 % Respiratory 20 /min Rate 12-17-2012 18:02 Name Value Interpretat Reference Comment ion Range BP 78 mm[Hg] Diastolic BP Systolic 140 mm[Hg] Heart 96 /min Rate/Pulse O2% 100 % Respiratory 18 /min Rate 06-20-2012 13:55 Name Value Interpretat Reference Comment ion Range BP 77 mm[Hg] Diastolic BP Systolic 122 mm[Hg] Heart 68 /min Rate/Pulse O2% 98 % Respiratory 20 /min Rate 06-20-2012 12:31 Name Value Interpretat Reference Comment ion Range BP 82 mm[Hg] Diastolic BP Systolic 135 mm[Hg] Heart 77 /min Rate/Pulse O2% 99 % Respiratory 20 /min Rate Results Labs Lab Lab Date Result Refere Interp Status Commen Order Detail nces retati t Range on TSH SerPl DL<=0.005 mIU/L-aCnc (12-04-2016 09:41) TSH 2.72 0.4-4.2 complet SerPl 017 uIU/mL ed DL<=0.0 09:41 05 mIU/L-a Cnc Hgb A1c MFr Bld (12-04-2016 01:24) Hgb A1c 7.5 % 4.7-6.0 complet MFr 017 ed Bld 01:24 TSH SerPl DL<=0.005 mIU/L-aCnc (12-03-2016 21:44) TSH 3.18 0.4-4.2 complet SerPl 017 uIU/mL ed DL<=0.0 21:44 05 mIU/L-a Cnc Urinalysis dipstick W Reflex Microscopic panel in Urine (10-19-2016 09:03) Bacteri 2+ O complet a 017 ed [Presen 09:03 ce] in Urine sedimen t by Light microsc opy Erythro 3-5 0 complet cytes 017 ed [Presen 09:03 ce] in Urine sedimen t by Light microsc opy Epithel 5-10 0#/hp complet ial 017 f - ed cells.s 09:03 5#/hp quamous f [Presen ce] in Urine sedimen t by Microsc opy high power field Urinalysis dipstick W Reflex Microscopic panel in Urine (10-19-2016 09:03) Appeara CLEAR CLEAR complet nce of 017 ed Urine 09:03 Bilirub NEGATIV NEG complet in 017 E ed [Presen 09:03 ce] in Urine by Test strip Erythro 1+ NEG Abnorma complet cytes 017 l ed [Presen 09:03 ce] in Urine Color YELLOW YELLOW complet of 017 ed Urine 09:03 Ketones NEGATIV NEG complet 017 E ed [Presen 09:03 ce] in Urine by Automat ed test strip Mucus NEGATIV NEG complet [Presen 017 E ed ce] in 09:03 Urine sedimen t by Light microsc opy Nitrite NEGATIV NEG complet 017 E ed [Presen 09:03 ce] in Urine by Test strip Urobili 0.2 NEG complet nogen 017 ed [Presen 09:03 ce] in Urine by Test strip Protein [Presence] in Urine (10-19-2016 09:03) Protein 50.6 0.0mg High complet 017 /dL - ed [Presen 09:03 11.9m ce] in g/dL Urine Urinalysis dipstick W Reflex Microscopic panel in Urine (10-15-2016 14:40) Bacteri 3+ O complet a 017 ed [Presen 14:40 ce] in Urine sedimen t by Light microsc opy Erythro OCC 0 complet cytes 017 ed [Presen 14:40 ce] in Urine sedimen t by Light microsc opy Epithel 10-20 0#/hp complet ial 017 f - ed cells.s 14:40 5#/hp quamous f [Presen ce] in Urine sedimen t by Microsc opy high power field Leukocy 5-10 O complet eusebio 017 wbc/hpf ed [#/volu 14:40 me] in Urine Urinalysis dipstick W Reflex Microscopic panel in Urine (10-15-2016 14:40) Appeara CLEAR CLEAR complet nce of 017 ed Urine 14:40 Bilirub NEGATIV NEG complet in 017 E ed [Presen 14:40 ce] in Urine by Test strip Erythro NEGATIV NEG complet cytes 017 E ed [Presen 14:40 ce] in Urine Color YELLOW YELLOW complet of 017 ed Urine 14:40 Ketones NEGATIV NEG complet 017 E ed [Presen 14:40 ce] in Urine by Automat ed test strip Mucus NEGATIV NEG complet [Presen 017 E ed ce] in 14:40 Urine sedimen t by Light microsc opy Nitrite NEGATIV NEG complet 017 E ed [Presen 14:40 ce] in Urine by Test strip Urobili 0.2 NEG complet nogen 017 ed [Presen 14:40 ce] in Urine by Test strip Hemoglobin A1c in Blood (09-21-2016 08:25) Hemoglo 7.2 % 0.0% High complet bin A1c 017 - ed in 08:25 7.0% Blood STREP SCREEN (RAPID) (02-19-2013 23:22) STREP NEGATIV complet SCREEN 013 E ed (RAPID) 23:22 Encounters Encounter Start End Date Code Location Performer Type Date Emergency SUE Russo MD (ER) 3 23:15 3 00:28 [facility] Emergency SUE FERNANDES (ER) 3 17:15 3 18:47 [facility] Emergency SUE Lopez (ER) 3 12:35 3 13:56 [facility] Fredy
--- OUTSIDE RECORDS SUMMARY | 2017-02-21 20:47 | External Medical Summary Rpt | CCD ---
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 I63.9 Cerebral [...] 250.00 250.00 DIAB 02-20-2013 Alexis IVANIA WO [facility] COMPL, TYPE Hospital II OR UNSPEC TYPE, NOT UNCNTRLD 305.1 305.1 02-20-2013 Alexis TOBACCO USE [facility] DISORDER Hospital 401.9 401.9 02-20-2013 [place] HYPERTENSIO [facility] N NOS Hospital 413.9 413.9 02-20-2013 Alexis ANGINA [facility] PECTORIS Hospital NEC/NOS 466.0 466.0 ACUTE 02-20-2013 Alexis BRONCHITIS [facility] V14.8 V14.8 02-20-2013 Alexis HX-DRUG [facility] ALLERGY [facility] Hospital 360.00 360.00 12-17-2012 [place] PURULENT [facility] ENDOPHTHALM Hospital NOS 787.23 787.23 06-20-2012 [place] DYSPHAGIA, [facility] PHARYNGEAL Hospital PHASE B37.3 CANDIDIASIS OF VULVA AND VAGINA E11.40 TYPE 2 DIABETES MELLITUS WITH DIABETIC NEUROPATHY, UNSP E11.9 TYPE 2 DIABETES MELLITUS WITHOUT COMPLICATIO NS F41.0 PANIC DISORDER WITHOUT AGORAPHOBIA [id number] J01.90 ACUTE SINUSITIS, UNSPECIFIED J02.8 ACUTE PHARYNGITIS [...] to Substance Substance Reaction Severity SULFA (sulfonamide) G-[id number]-LMGY/THROAT Severe Aspirin Unknown Intermediate Naproxen I-ITCHING Intermediate [...] Russo MD (ER) 3 23:15 3 00:28 [facility] Emergency SUE FERNANDES (ER) 3 17:15 3 18:47 [facility] [place] Emergency SUE Loepz (ER) 3 12:35 3 13:56 [facility] Fredy
--- OUTSIDE RECORDS SUMMARY | 2017-02-21 20:48 | External Medical Summary Rpt | CCD ---
Author Author [employer] Address Unknown Phone Unavailable Purpose Continuity of Care Document - through 2016
--- OUTSIDE RECORDS SUMMARY | 2017-02-21 20:48 | External Medical Summary Rpt | CCD ---
Demographics Preferred Language Korean Marital Status Unknown Gnosticist Affiliation Unknown Race Unknown Ethnic Group Unknown Author Author , ASHLEY RAMIREZ Address Unknown Phone Immunization No patient found.
--- OUTSIDE RECORDS SUMMARY | 2017-02-21 20:48 | External Medical Summary Rpt | CCD ---
Demographics Preferred Language Yoruba Marital Status Unknown Holiness Affiliation Unknown Race Unknown Ethnic Group Unknown Author Author , ASHLEY RAMIREZ Address Unknown Phone Immunization No patient found.
--- OUTSIDE RECORDS SUMMARY | 2017-02-21 20:49 | External Medical Summary Rpt ---
Author Author [employer], [employer] Organization [employer] Address Unknown Phone Unavailable Results CBC W Auto Differential panel in Blood Observa Value Referen Units Interpr Notes Date tion ce etation Range Basophils 0 - 0.2 K/MM3 Normal No Sep 23 informati 2017 8:15 [#/volume on in PM ] in source Blood by data Automated count Basophils 0.1 - 2.0 % Normal No Sep 23 /100 informati 2017 8:15 leukocyte on in PM s in source Blood by data Automated count Eosinophi 0.0 - 0.4 K/mm3 Normal No Sep 23 ls informati 2017 8:15 [#/volume on in PM ] in source Blood by data Automated count Eosinophi 0.1 - % Normal No Sep 23 ls/100 12.0 informati 2017 8:15 leukocyte on in PM s in source Blood by data Automated count Granulocy 1.8 - 7.8 K/mm3 Normal No Sep 23 eusebio informati 2017 8:15 [#/volume on in PM ] in source Blood by data Automated count Granulocy 37.0 - % Normal No Sep 23 eusebio/100 80.0 informati 2017 8:15 leukocyte on in PM s in source Blood by data Automated count Hematocri 37.0 - % Normal No Sep 23 t [Volume 47.0 informati 2016 8:15 on in PM Fraction] source of Blood data Hemoglobi 12.2 - g/dL Normal No Sep 23 n 16.2 informati 2017 8:15 [Mass/vol on in PM ume] in source Blood data Lymphocyt 0.7 - 4.5 K/mm3 Normal No Sep 23 es informati 2017 8:15 [#/volume on in PM ] in source Unspecifi data ed specimen by Automated count Lymphocyt 10 - 50.0 % Normal No Sep 23 es informati 2017 8:15 [#/volume on in PM ] in source Unspecifi data ed specimen by Automated count Erythrocy 27 - 31.2 pg Normal No Sep 23 te mean informati 2016 8:15 corpuscul on in PM ar source hemoglobi data n [Entitic mass] Erythrocy 31.8 - g/dl Normal No Sep 23 te mean 35.4 informati 2017 8:15 corpuscul on in PM ar source hemoglobi data n concentra tion [Mass/vol ume] by Automated count Erythrocy 82.2 - fl Normal No Sep 23 te mean 97.8 informati 2016 8:15 corpuscul on in PM ar volume source [Entitic data volume] by Automated count Monocytes 0.1 - 1.0 K/mm3 Normal No Sep 23 informati 2017 8:15 [#/volume on in PM ] in source Blood by data Automated count Monocytes 1.7 - 9.3 % Normal No Sep 23 /100 informati 2017 8:15 leukocyte on in PM s in source Blood by data Automated count Platelet 7.4 - fl Normal No Sep 23 mean 10.4 informati 2016 8:15 volume on in PM [Entitic source volume] data in Blood by Automated count Platelets 142 - 424 K/mm3 Normal No Sep 23 informati 2016 8:15 [#/volume on in PM ] in source Blood data Erythrocy 4.2 - 5.4 M/mm3 Normal No Sep 23 eusebio informati 2017 8:15 [#/volume on in PM ] in source Amniotic data fluid Erythrocy 11.5 - % Normal No Sep 23 te 17.5 informati 2016 8:15 distribut on in PM ion width source [Entitic data volume] by Automated count Leukocyte 4.8 - K/MM3 Normal No Sep 23 s 10.8 informati 2016 8:15 [#/volume on in PM ] in source Blood data Basic metabolic panel in Blood Observa Value Referen Units Interpr Notes Date tion ce etation Range Urea 7 - 18 mg/dL Normal No Sep 21 nitrogen informati 2017 7:04 [Mass/vol on in AM ume] in source Serum or data Plasma Calcium 8.5 - mg/dL Normal No Sep 21 [Mass/vol 10.1 informati 2017 7:04 ume] in on in AM Serum or source Plasma data Chloride 98 - 107 mmoL/L Normal No Sep 21 [Moles/vo informati 2017 7:04 lume] in on in AM Serum or source Plasma data Carbon 21.0 - mmoL/L Normal No Sep 21 dioxide, 32.0 informati 2017 7:04 total on in AM [Moles/vo source lume] in data Serum or Plasma Creatinin 0.55 - mg/dL Normal No Sep 21 e 1.02 informati 2017 7:04 [Mass/vol on in AM ume] in source Serum or data Plasma Estimated 59- ML/MIN No REFERENCE Sep 21 informati RANGE: 2017 7:04 glomerula on in >60 AM r source ML/MIN/1. filtratio data 73 SQUARE n rate METERSIf (GF this patient is -A merican, then multiply theresult by 1.210. Glucose 74 - 106 mg/dL High No Sep 21 [Mass/vol informati 2017 7:04 ume] in on in AM Serum or source Plasma data Potassium 3.5 - 5.1 mmoL/L Normal No Sep 21 informati 2017 7:04 [Moles/vo on in AM lume] in source Serum or data Plasma Sodium 136 - 145 mmoL/L Normal No Sep [Moles/vo informati 2017 7:04 lume] in on in AM Serum or source Plasma data Fibrin D-dimer FEU [Mass/volume] in Platelet poor plasma Observa Value Referen Units Interpr Notes Date tion ce etation Range IS PATIENT ON ANTICOAGULANTS? N PTT RESULTS MUST BE CALLED IF PT ON HEPARIN!!! Y Fibrin 0 - 400 ng/mL High Sep 5 D-dimer alert NOTIFICAT 2017 FEU ION 10:00 AM [Mass/vol RESULT ume] in [place] Platelet neThe poor D-Dimer plasma values are presented in units of mass(ng/m L) ofD-Dimer units(DDU ).This test has been FDA approved as an aid in the assessmen tand evaluatio n of suspected DIC, and thromboem bolic eventsinc luding PE and DVT. However, it does not have approvalf or cut-off values for the exclusion of these condition s. INR in Blood by Coagulation assay Observa Value Referen Units Interpr Notes Date tion ce etation Range IS PATIENT ON ANTICOAGULANTS? N PTT RESULTS MUST BE CALLED IF PT ON HEPARIN!!! Y INR in 0.9 - 1.1 No Normal INDICATIO Sep 5 Blood by informati N 2017 Coagulati on in 10:00 AM on assay source INR data RANGETHER APY FOR DVT, PE, ATRIAL FIB; 2.0 - 3.0PROPHY LAXIS FOR VTETHERAP Y FOR MECHANICA L HEART 2.5 - 3.5VALVE; PREVENTIO N OF SYSTEMICE MBOLISM SECONDARY TO AMI Prothromb 9.4 - SECONDS Normal No Sep 5 in time 11.8 inform2016 (PT) in on in 10:00 AM Platelet source poor data plasma by Coagulati on assay Activated partial thrombplastin time (aPTT) in Platelet poor plasma by Coagulation assay Observa Value Referen Units Interpr Notes Date tion ce etation Range IS PATIENT ON ANTICOAGULANTS? N PTT RESULTS MUST BE CALLED IF PT ON HEPARIN!!! Y Activated 23.6 - SECONDS Normal No Sep 5 partial 34.0 2016 thrombpla on in 10:00 AM stin time source (aPTT) data in Platelet poor plasma by Coagulati on assay CBC W Auto Differential panel in Blood Observa Value Referen Units Interpr Notes Date tion ce etation Range Basophils 0 - 0.2 K/MM3 Normal No Sep 5 2016 [#/volume on in 10:00 AM ] in source Blood by data Automated count Basophils 0.1 - 2.0 % Normal No Sep 5 /100 2016 leukocyte on in 10:00 AM s in source Blood by data Automated count Eosinophi 0.0 - 0.4 K/mm3 Normal No Sep 5 ls 2016 [#/volume on in 10:00 AM ] in source Blood by data Automated count Eosinophi 0.1 - % Normal No Sep 5 ls/100 12.0 inform2016 leukocyte on in 10:00 AM s in source Blood by data Automated count Granulocy 1.8 - 7.8 K/mm3 Normal No Sep 5 eusebio inform2016 [#/volume on in 10:00 AM ] in source Blood by data Automated count Granulocy 37.0 - % Normal No Sep 5 eusebio/100 80.0 inform2016 leukocyte on in 10:00 AM s in source Blood by data Automated count Hematocri 37.0 - % Normal No Sep 5 t [Volume 47.0 informati 2016 on in 10:00 AM Fraction] source of Blood data Hemoglobi 12.2 - g/dL Normal No Sep 5 n 16.2 2016 [Mass/vol on in 10:00 AM ume] in source Blood data Lymphocyt 0.7 - 4.5 K/mm3 Normal No Sep 5 es inform 2017 [#/volume on in 10:00 AM ] in source Unspecifi data ed specimen by Automated count Lymphocyt 10 - 50.0 % Normal No Sep 5 es inform 2017 [#/volume on in 10:00 AM ] in source Unspecifi data ed specimen by Automated count Erythrocy 27 - 31.2 pg Normal No Sep 5 te mean 2016 corpuscul on in 10:00 AM ar source hemoglobi data n [Entitic mass] Erythrocy 31.8 - g/dl Normal No Sep 5 te mean 35.4 inform2016 corpuscul on in 10:00 AM ar source hemoglobi data n concentra tion [Mass/vol ume] by Automated count Erythrocy 82.2 - fl Normal No Sep 5 te mean 97.8 inform2016 corpuscul on in 10:00 AM ar volume source [Entitic data volume] by Automated count Monocytes 0.1 - 1.0 K/mm3 Normal No Sep 5 2016 [#/volume on in 10:00 AM ] in source Blood by data Automated count Monocytes 1.7 - 9.3 % Normal No Sep 5 /100 2016 leukocyte on in 10:00 AM s in source Blood by data Automated count Platelet 7.4 - fl Normal No Sep 5 mean 10.4 2016 volume on in 10:00 AM [Entitic source volume] data in Blood by Automated count Platelets 142 - 424 K/mm3 Normal No Sep 5 2016 [#/volume on in 10:00 AM ] in source Blood data Erythrocy 4.2 - 5.4 M/mm3 Normal No Sep 5 eusebio 2016 [#/volume on in 10:00 AM ] in source Amniotic data fluid Erythrocy 11.5 - % Normal No Sep 5 te 17.5 2016 distribut on in 10:00 AM ion width source [Entitic data volume] by Automated count Leukocyte 4.8 - K/MM3 Normal No Sep 5 s 10.8 inform2016 [#/volume on in 10:00 AM ] in source Blood data Glucose [Mass/volume] in Capillary blood by Glucometer Observa Value Referen Units Interpr Notes Date tion ce etation Range Glucose 70 - 110 mg/dl No No Dec 03 [Mass/vol informati informati 2017 4:35 ume] in on in on in PM Capillary source source blood by data data Glucomete r CBC W Auto Differential panel in Blood Observa Value Referen Units Interpr Notes Date tion ce etation Range Basophils 0 - 0.2 K/MM3 Normal No Dec 03 informati 2016 3:55 [#/volume on in PM ] in source Blood by data Automated count Basophils 0.1 - 2.0 % Normal No Dec 03 /100 informati 2016 3:55 leukocyte on in PM s in source Blood by data Automated count Eosinophi 0.0 - 0.4 K/mm3 Normal No Dec 03 ls informati 2016 3:55 [#/volume on in PM ] in source Blood by data Automated count Eosinophi 0.1 - % Normal No Dec 03 ls/100 12.0 informati 2016 3:55 leukocyte on in PM s in source Blood by data Automated count Granulocy 1.8 - 7.8 K/mm3 Normal No Dec 03 eusebio informati 2016 3:55 [#/volume on in PM ] in source Blood by data Automated count Granulocy 37.0 - % Normal No Dec 03 eusebio/100 80.0 informati 2016 3:55 leukocyte on in PM s in source Blood by data Automated count Hematocri 37.0 - % Normal No Dec 03 t [Volume 47.0 informati 2016 3:55 on in PM Fraction] source of Blood data Hemoglobi 12.2 - g/dL Normal No Dec 03 n 16.2 informati 2016 3:55 [Mass/vol on in PM ume] in source Blood data Lymphocyt 0.7 - 4.5 K/mm3 Normal No Dec 03 es informati 2016 3:55 [#/volume on in PM ] in source Unspecifi data ed specimen by Automated count Lymphocyt 10 - 50.0 % Normal No Dec 03 es informati 2016 3:55 [#/volume on in PM ] in source Unspecifi data ed specimen by Automated count Erythrocy 27 - 31.2 pg Normal No Dec 03 te mean informati 2016 3:55 corpuscul on in PM ar source hemoglobi data n [Entitic mass] Erythrocy 31.8 - g/dl Normal No Dec 03 te mean 35.4 informati 2016 3:55 corpuscul on in PM ar source hemoglobi data n concentra tion [Mass/vol ume] by Automated count Erythrocy 82.2 - fl Normal No Dec 03 te mean 97.8 informati 2016 3:55 corpuscul on in PM ar volume source [Entitic data volume] by Automated count Monocytes 0.1 - 1.0 K/mm3 Normal No Dec 03 informati 2016 3:55 [#/volume on in PM ] in source Blood by data Automated count Monocytes 1.7 - 9.3 % Normal No Dec 03 /100 informati 2016 3:55 leukocyte on in PM s in source Blood by data Automated count Platelet 7.4 - fl Normal No Dec 03 mean 10.4 informati 2016 3:55 volume on in PM [Entitic source volume] data in Blood by Automated count Platelets 142 - 424 K/mm3 No No Dec 03 informati informati 2017 3:55 [#/volume on in on in PM ] in source source Blood data data Erythrocy 4.2 - 5.4 M/mm3 Normal No Dec 03 eusebio informati 2016 3:55 [#/volume on in PM ] in source Amniotic data fluid Erythrocy 11.5 - % Normal No Dec 03 te 17.5 informati 2016 3:55 distribut on in PM ion width source [Entitic data volume] by Automated count Leukocyte 4.8 - K/MM3 Normal No Dec 03 s 10.8 informati 2016 3:55 [#/volume on in PM ] in source Blood data Parathyrin.intact [Mass/volume] in Serum or Plasma Observa Value Referen Units Interpr Notes Date tion ce etation Range Parathyri 15 - 65 pg/mL No Performed Oct 19 n.intact informati at: CB 2017 9:03 [Mass/vol on in - [facility] AM ume] in source Serum or data [place] [id number] Plasma 0 [place], [place] [id number] Professional Driver: Omero Field PhD, Phone: [phone] Renal function 2000 panel in Serum or Plasma Observa Value Referen Units Interpr Notes Date tion ce etation Range Albumin 3.4 - 5.0 gm/dL Normal No Oct 19 [Mass/vol informati 2016 9:03 ume] in on in AM Serum or source Plasma data Urea 7 - 18 mg/dL Normal No Oct 19 nitrogen informati 2016 9:03 [Mass/vol on in AM ume] in source Serum or data Plasma Calcium 8.5 - mg/dL Normal No Oct 19 [Mass/vol 10.1 informati 2016 9:03 ume] in on in AM Serum or source Plasma data Chloride 98 - 107 mmoL/L Normal No Oct 19 [Moles/vo informati 2016 9:03 lume] in on in AM Serum or source Plasma data Carbon 21.0 - mmoL/L Normal No Oct 19 dioxide, 32.0 informati 2016 9:03 total on in AM [Moles/vo source lume] in data Serum or Plasma Creatinin 0.55 - mg/dL Normal No Oct 19 e 1.02 informati 2016 9:03 [Mass/vol on in AM ume] in source Serum or data Plasma Estimated 59- ML/MIN No REFERENCE Oct 19 informati RANGE: 2017 9:03 glomerula on in >60 AM r source ML/MIN/1. filtratio data 73 SQUARE n rate METERSIf (GF this patient is -A merican, then multiply theresult by 1.210. Glucose 74 - 106 mg/dL High No Oct 19 [Mass/vol informati 2016 9:03 ume] in on in AM Serum or source Plasma data Potassium 3.5 - 5.1 mmoL/L Normal No Oct 19 inform2016 9:03 [Moles/vo on in AM lume] in source Serum or data Plasma Sodium 136 - 145 mmoL/L Normal No Oct 19 [Moles/vo informati 2016 9:03 lume] in on in AM Serum or source Plasma data Phosphate 2.4 - 4.9 mg/dL Normal No Oct 19 inform2016 9:03 [Moles/vo on in AM lume] in source Unspecifi data ed specimen 25-Hydroxyvitamin D [Mass/volume] in Serum or Plasma Observa Value Referen Units Interpr Notes Date tion ce etation Range 25-Hydrox 30.0 - ng/mL No Vitamin D Oct 19 yvitamin 100.0 informati 2017 9:03 D on in deficienc AM [Mass/vol source y has ume] in data been Serum or defined Plasma by the [place] [employer] e and an Endocrine Society practice guideline as alevel of serum 25-OH vitamin D less than 20 ng/mL (1,2).The Endocrine Society went on to further define vitamin Dinsuffic iency as a level between 21 and 29 ng/mL (2).1. IOM (Institut e of Medicine) . 2010. Dietary reference intakes for calcium and D. [place]: [employer].2. Jacky MF, Candido NC, Cinthia Longo IZQUIERDO, et al.Evalua tion, treatment , and preventio n of vitamin Ddeficien cy: an Endocrine Society clinical practiceg glennamiguelinamagdaleno. JCEM. 2010; 96(7):191 1-30.Perf ormed at: - [facility] [place] [id number] [address] [place] [id number] Professional Driver: Omero Field PhD, Phone: [phone] Urinalysis dipstick W Reflex Microscopic panel in Urine Observa Value Referen Units Interpr Notes Date tion ce etation Range Appeara CLEAR CLEAR No No No Oct 19 nce of informa informa informa 2016 Urine tion in tion in tion in 9:03 AM source source source data data data Bacteri 2+ O No No No Oct 19 a informa informa informa 2016 [Presen tion in tion in tion in 9:03 AM ce] in source source source Urine data data data sedimen t by Light microsc opy Bilirub NEGATIV NEG No No No Oct 19 in E informa informa informa 2016 [Presen tion in tion in tion in 9:03 AM ce] in source source source Urine data data data by Test strip Erythro 1+ NEG No Abnorma No Oct 19 cytes informa l informa 2016 [Presen tion in tion in 9:03 AM ce] in source source Urine data data Color YELLOW YELLOW No No No Oct 19 of informa informa informa 2016 Urine tion in tion in tion in 9:03 AM source source source data data data Glucose NEG No No No Oct 19 [Mass/vol informati informati informati 2016 9:03 ume] in on in on in on in AM Urine by source source source Test data data data strip Ketones NEGATIV NEG mg/dL No No Oct 19 E informa informa 2016 [Presen tion in tion in 9:03 AM ce] in source source Urine data data by Automat ed test strip Mucus NEGATIV NEG No No No Oct 19 [Presen E informa informa informa 2017 ce] in tion in tion in tion in 9:03 AM Urine source source source sedimen data data data t by Light microsc opy Nitrite NEGATIV NEG No No No Oct 19 E informa informa informa 2016 [Presen tion in tion in tion in 9:03 AM ce] in source source source Urine data data data by Test strip pH of 5.0 - 8.5 No Normal No Oct 19 Urine informati informati 2016 9:03 on in on in AM source source data data Protein NEG mg/dL High No Oct 19 [Mass/vol informati 2016 9:03 ume] in on in AM Urine by source Automated data test strip Erythro 3-5 0 rbc/hpf No No Oct 19 cytes informa informa 2016 [Presen tion in tion in 9:03 AM ce] in source source Urine data data sedimen t by Light microsc opy Specific 1.005 - No Normal No Oct 19 gravity 1.030 informati informati 2016 9:03 of Urine on in on in AM source source data data Epithel 5-10 0 - 5 #/hpf No No Oct 19 ial informa informa 2016 cells.s tion in tion in 9:03 AM quamous source source data data [Presen ce] in Urine sedimen t by Microsc opy high power field Urobili 0.2 NEG E.U./dL No No Oct 19 nogen informa informa 2016 [Presen tion in tion in 9:03 AM ce] in source source Urine data data by Test strip Leukocyte O wbc/hpf No No Oct 19 s informati informati 2016 9:03 [#/volume on in on in AM ] in source source Urine data data Urinalysis dipstick W Reflex Microscopic panel in Urine Observa Value Referen Units Interpr Notes Date tion ce etation Range Appeara CLEAR CLEAR No No No Oct 19 nce of informa informa informa 2017 Urine tion in tion in tion in 9:03 AM source source source data data data Bilirub NEGATIV NEG No No No Oct 19 in E informa informa informa 2016 [Presen tion in tion in tion in 9:03 AM ce] in source source source Urine data data data by Test strip Erythro 1+ NEG No Abnorma No Oct 19 cytes informa l informa 2016 [Presen tion in tion in 9:03 AM ce] in source source Urine data data Color YELLOW YELLOW No No No Oct 19 of informa informa informa 2017 Urine tion in tion in tion in 9:03 AM source source source data data data Glucose NEG No No No Oct 19 [Mass/vol informati informati informati 2016 9:03 ume] in on in on in on in AM Urine by source source source Test data data data strip Ketones NEGATIV NEG mg/dL No No Oct 19 E informa informa 2016 [Presen tion in tion in 9:03 AM ce] in source source Urine data data by Automat ed test strip Mucus NEGATIV NEG No No No Oct 19 [Presen E informa informa informa 2016 ce] in tion in tion in tion in 9:03 AM Urine source source source sedimen data data data t by Light microsc opy Nitrite NEGATIV NEG No No No Oct 19 E informa informa informa 2016 [Presen tion in tion in tion in 9:03 AM ce] in source source source Urine data data data by Test strip pH of 5.0 - 8.5 No Normal No Oct 19 Urine informati informati 2016 9:03 on in on in AM source source data data Protein NEG mg/dL High No Oct 19 [Mass/vol informati 2016 9:03 ume] in on in AM Urine by source Automated data test strip Specific 1.005 - No Normal No Oct 19 gravity 1.030 informati informati 2016 9:03 of Urine on in on in AM source source data data Urobili 0.2 NEG E.U./dL No No Oct 19 nogen informa informa 2016 [Presen tion in tion in 9:03 AM ce] in source source Urine data data by Test strip CBC W Auto Differential panel in Blood Observa Value Referen Units Interpr Notes Date tion ce etation Range Basophils 0 - 0.2 K/MM3 Normal No Oct 19 informati 2016 9:03 [#/volume on in AM ] in source Blood by data Automated count Basophils 0.1 - 2.0 % Normal No Oct 19 /100 informati 2017 9:03 leukocyte on in AM s in source Blood by data Automated count Eosinophi 0.0 - 0.4 K/mm3 Normal No Oct 19 ls informati 2016 9:03 [#/volume on in AM ] in source Blood by data Automated count Eosinophi 0.1 - % Normal No Oct 19 ls/100 12.0 informati 2017 9:03 leukocyte on in AM s in source Blood by data Automated count Granulocy 1.8 - 7.8 K/mm3 Normal No Oct 19 eusebio informati 2016 9:03 [#/volume on in AM ] in source Blood by data Automated count Granulocy 37.0 - % Normal No Oct 19 eusebio/100 80.0 informati 2017 9:03 leukocyte on in AM s in source Blood by data Automated count Hematocri 37.0 - % Normal No Oct 19 t [Volume 47.0 informati 2017 9:03 on in AM Fraction] source of Blood data Hemoglobi 12.2 - g/dL Normal No Oct 19 n 16.2 informati 2016 9:03 [Mass/vol on in AM ume] in source Blood data Lymphocyt 0.7 - 4.5 K/mm3 Normal No Oct 19 es informati 2016 9:03 [#/volume on in AM ] in source Unspecifi data ed specimen by Automated count Lymphocyt 10 - 50.0 % Normal No Oct 19 es informati 2016 9:03 [#/volume on in AM ] in source Unspecifi data ed specimen by Automated count Erythrocy 27 - 31.2 pg Normal No Oct 19 te mean informati 2016 9:03 corpuscul on in AM ar source hemoglobi data n [Entitic mass] Erythrocy 31.8 - g/dl Normal No Oct 19 te mean 35.4 informati 2016 9:03 corpuscul on in AM ar source hemoglobi data n concentra tion [Mass/vol ume] by Automated count Erythrocy 82.2 - fl Normal No Oct 19 te mean 97.8 informati 2016 9:03 corpuscul on in AM ar volume source [Entitic data volume] by Automated count Monocytes 0.1 - 1.0 K/mm3 Normal No Oct 19 informati 2017 9:03 [#/volume on in AM ] in source Blood by data Automated count Monocytes 1.7 - 9.3 % Normal No Oct 19 / informati 2017 9:03 leukocyte on in AM s in source Blood by data Automated count Platelet 7.4 - fl Normal No Oct 19 mean 10.4 informati 2016 9:03 volume on in AM [Entitic source volume] data in Blood by Automated count Platelets 142 - 424 K/mm3 Normal No Oct 19 informati 2016 9:03 [#/volume on in AM ] in source Blood data Erythrocy 4.2 - 5.4 M/mm3 Normal No Oct 19 eusebio informati 2016 9:03 [#/volume on in AM ] in source Amniotic data fluid Erythrocy 11.5 - % Normal No Oct 19 te 17.5 informati 2016 9:03 distribut on in AM ion width source [Entitic data volume] by Automated count Leukocyte 4.8 - K/MM3 Normal No Oct 19 s 10.8 informati 2016 9:03 [#/volume on in AM ] in source Blood data Creatinine [Mass/volume] in Urine Observa Value Referen Units Interpr Notes Date tion ce etation Range Creatinin 20 - 320 mg/dL Normal No Oct 19 e informati 2016 9:03 [Mass/vol on in AM ume] in source Urine data Protein [Presence] in Urine Observa Value Referen Units Interpr Notes Date tion ce etation Range Protein 50.6 0.0 - mg/dL High No Oct 19 11.9 informa 2017 [Presen tion in 9:03 AM ce] in source Urine data Urinalysis dipstick W Reflex Microscopic panel in Urine Observa Value Referen Units Interpr Notes Date tion ce etation Range Appeara CLEAR CLEAR No No No Oct 15 nce of informa informa informa 2016 Urine tion in tion in tion in 2:40 PM source source source data data data Bacteri 3+ O No No No Oct 15 a informa informa informa 2016 [Presen tion in tion in tion in 2:40 PM ce] in source source source Urine data data data sedimen t by Light microsc opy Bilirub NEGATIV NEG No No No Oct 15 in E informa informa informa 2016 [Presen tion in tion in tion in 2:40 PM ce] in source source source Urine data data data by Test strip Erythro NEGATIV NEG No No No Oct 15 cytes E informa informa informa 2016 [Presen tion in tion in tion in 2:40 PM ce] in source source source Urine data data data Color YELLOW YELLOW No No No Oct 15 of informa informa informa 2017 Urine tion in tion in tion in 2:40 PM source source source data data data Glucose NEG No No No Oct 15 [Mass/vol informati informati informati 2016 2:40 ume] in on in on in on in PM Urine by source source source Test data data data strip Ketones NEGATIV NEG mg/dL No No Oct 15 E informa informa 2016 [Presen tion in tion in 2:40 PM ce] in source source Urine data data by Automat ed test strip Mucus NEGATIV NEG No No No Oct 15 [Presen E informa informa informa 2016 ce] in tion in tion in tion in 2:40 PM Urine source source source sedimen data data data t by Light microsc opy Nitrite NEGATIV NEG No No No Oct 15 E informa informa informa 2016 [Presen tion in tion in tion in 2:40 PM ce] in source source source Urine data data data by Test strip pH of 5.0 - 8.5 No Normal No Oct 15 Urine informati informati 2016 2:40 on in on in PM source source data data Protein NEG mg/dL High No Oct 15 [Mass/vol informati 2016 2:40 ume] in on in PM Urine by source Automated data test strip Erythro OCC 0 rbc/hpf No No Oct 15 cytes informa informa 2016 [Presen tion in tion in 2:40 PM ce] in source source Urine data data sedimen t by Light microsc opy Specific 1.005 - No Normal No Oct 15 gravity 1.030 informati informati 2017 2:40 of Urine on in on in PM source source data data Epithel 10-20 0 - 5 #/hpf No No Oct 15 ial informa informa 2017 cells.s tion in tion in 2:40 PM quamous source source data data [Presen ce] in Urine sedimen t by Microsc opy high power field Urobili 0.2 NEG E.U./dL No No Oct 15 nogen informa informa 2016 [Presen tion in tion in 2:40 PM ce] in source source Urine data data by Test strip Leukocy [5 O wbc/hpf No No Oct 15 eusebio wbc/hpf informa informa 2016 [#/volu ; 10 tion in tion in 2:40 PM me] in wbc/hpf source source Urine ] data data Urinalysis dipstick W Reflex Microscopic panel in Urine Observa Value Referen Units Interpr Notes Date tion ce etation Range Appeara CLEAR CLEAR No No No Oct 15 nce of informa informa informa 2016 Urine tion in tion in tion in 2:40 PM source source source data data data Bilirub NEGATIV NEG No No No Oct 15 in E informa informa informa 2016 [Presen tion in tion in tion in 2:40 PM ce] in source source source Urine data data data by Test strip Erythro NEGATIV NEG No No No Oct 15 cytes E informa informa informa 2016 [Presen tion in tion in tion in 2:40 PM ce] in source source source Urine data data data Color YELLOW YELLOW No No No Oct 15 of informa informa informa 2016 Urine tion in tion in tion in 2:40 PM source source source data data data Glucose NEG No No No Oct 15 [Mass/vol informati informati informati 2016 2:40 ume] in on in on in on in PM Urine by source source source Test data data data strip Ketones NEGATIV NEG mg/dL No No Oct 15 E informa informa 2016 [Presen tion in tion in 2:40 PM ce] in source source Urine data data by Automat ed test strip Mucus NEGATIV NEG No No No Oct 15 [Presen E informa informa informa 2016 ce] in tion in tion in tion in 2:40 PM Urine source source source sedimen data data data t by Light microsc opy Nitrite NEGATIV NEG No No No Oct 15 E informa informa informa 2016 [Presen tion in tion in tion in 2:40 PM ce] in source source source Urine data data data by Test strip pH of 5.0 - 8.5 No Normal No Oct 15 Urine informati informati 2017 2:40 on in on in PM source source data data Protein NEG mg/dL High No Oct 15 [Mass/vol informati 2016 2:40 ume] in on in PM Urine by source Automated data test strip Specific 1.005 - No Normal No Oct 15 gravity 1.030 informati informati 2017 2:40 of Urine on in on in PM source source data data Urobili 0.2 NEG E.U./dL No No Oct 15 nogen informa informa 2016 [Presen tion in tion in 2:40 PM ce] in source source Urine data data by Test strip Basic metabolic panel in Blood Observa Value Referen Units Interpr Notes Date tion ce etation Range Urea 7 - 18 mg/dL Normal No Oct 03 nitrogen informati 2016 7:20 [Mass/vol on in AM ume] in source Serum or data Plasma Calcium 8.5 - mg/dL Normal No Oct 03 [Mass/vol 10.1 informati 2016 7:20 ume] in on in AM Serum or source Plasma data Chloride 98 - 107 mmoL/L Normal No Oct 03 [Moles/vo informati 2016 7:20 lume] in on in AM Serum or source Plasma data Carbon 21.0 - mmoL/L Normal No Oct 03 dioxide, 32.0 informati 2016 7:20 total on in AM [Moles/vo source lume] in data Serum or Plasma Creatinin 0.55 - mg/dL Normal No Oct 03 e 1.02 informati 2016 7:20 [Mass/vol on in AM ume] in source Serum or data Plasma Creatinin 50 - 200 ML/MIN Normal No Oct 03 e renal informati 2016 7:20 clearance on in AM source predicted data by Cockcroft -Gault formula Estimated 59- ML/MIN No REFERENCE Oct 03 informati RANGE: 2017 7:20 glomerula on in >60 AM r source ML/MIN/1. filtratio data 73 SQUARE n rate METERSIf (GF this patient is -A merican, then multiply theresult by 1.210. Glucose 74 - 106 mg/dL High No Oct 03 [Mass/vol informati 2016 7:20 ume] in on in AM Serum or source Plasma data Potassium 3.5 - 5.1 mmoL/L Normal No Oct 03 informati 2016 7:20 [Moles/vo on in AM lume] in source Serum or data Plasma Sodium 136 - 145 mmoL/L Normal No Oct 03 [Moles/vo informati 2016 7:20 lume] in on in AM Serum or source Plasma data CBC W Auto Differential panel in Blood Observa Value Referen Units Interpr Notes Date ti ce etation Range Basophils 0 - 0.2 K/MM3 Normal No Oct 03 informati 2016 7:20 [#/volume on in AM ] in source Blood by data Automated count Basophils 0.1 - 2.0 % Normal No Oct 03 /100 informati 2016 7:20 leukocyte on in AM s in source Blood by data Automated count Eosinophi 0.0 - 0.4 K/mm3 Normal No Oct 03 ls informati 2016 7:20 [#/volume on in AM ] in source Blood by data Automated count Eosinophi 0.1 - % Normal No Oct 03 ls/100 12.0 informati 2016 7:20 leukocyte on in AM s in source Blood by data Automated count Granulocy 1.8 - 7.8 K/mm3 Normal No Oct 03 eusebio informati 2016 7:20 [#/volume on in AM ] in source Blood by data Automated count Granulocy 37.0 - % Normal No Oct 03 eusebio/100 80.0 informati 2016 7:20 leukocyte on in AM s in source Blood by data Automated count Hematocri 37.0 - % Normal No Oct 03 t [Volume 47.0 informati 2016 7:20 on in AM Fraction] source of Blood data Hemoglobi 12.2 - g/dL Normal No Oct 03 n 16.2 informati 2016 7:20 [Mass/vol on in AM ume] in source Blood data Lymphocyt 0.7 - 4.5 K/mm3 Normal No Oct 03 es informati 2016 7:20 [#/volume on in AM ] in source Unspecifi data ed specimen by Automated count Lymphocyt 10 - 50.0 % Normal No Oct 03 es informati 2016 7:20 [#/volume on in AM ] in source Unspecifi data ed specimen by Automated count Erythrocy 27 - 31.2 pg Normal No Oct 03 te mean informati 2016 7:20 corpuscul on in AM ar source hemoglobi data n [Entitic mass] Erythrocy 31.8 - g/dl Normal No Oct 03 te mean 35.4 informati 2016 7:20 corpuscul on in AM ar source hemoglobi data n concentra tion [Mass/vol ume] by Automated count Erythrocy 82.2 - fl Normal No Oct 03 te mean 97.8 informati 2016 7:20 corpuscul on in AM ar volume source [Entitic data volume] by Automated count Monocytes 0.1 - 1.0 K/mm3 Normal No Oct 03 informati 2017 7:20 [#/volume on in AM ] in source Blood by data Automated count Monocytes 1.7 - 9.3 % Normal No Sep 24 /100 informati 2017 7:20 leukocyte on in AM s in source Blood by data Automated count Platelet 7.4 - fl Normal No Sep 24 mean 10.4 informati 2016 7:20 volume on in AM [Entitic source volume] data in Blood by Automated count Platelets 142 - 424 K/mm3 Normal No Sep 24 informati 2016 7:20 [#/volume on in AM ] in source Blood data Erythrocy 4.2 - 5.4 M/mm3 Normal No Sep 24 eusebio informati 2016 7:20 [#/volume on in AM ] in source Amniotic data fluid Erythrocy 11.5 - % Normal No Oct 03 te 17.5 informati 2016 7:20 distribut on in AM ion width source [Entitic data volume] by Automated count Leukocyte 4.8 - K/MM3 Normal No Sep 24 s 10.8 informati 2016 7:20 [#/volume on in AM ] in source Blood data Microalb/Creat Ratio, Randm Ur Observa Value Referen Units Interpr Notes Date tion ce etation Range Microalbu Not ug/mL No No Sep 12 min Estab. informati informati 2016 8:25 [Mass/vol on in on in AM ume] in source source Urine data data Albumin/C 0.0 - No High INFCE Sep 21 reatinine 30.0 informati Result 2017 8:25 [Mass on in Units: AM ratio] in source mg/g Urine data creatPerf ormed at: - [facility] [place] [id number] [address] [place] [id number] Professional Driver: Omero Field PhD, Phone: [phone] Creatinin Not mg/dL No No Sep 12 e Estab. informati informati 2016 8:25 [Mass/vol on in on in AM ume] in source source Urine data data 25-Hydroxyvitamin D [Mass/volume] in Serum or Plasma Observa Value Referen Units Interpr Notes Date tion ce etation Range 25-Hydrox 30.0 - ng/mL Low Vitamin D Kennedy 12 yvitamin 100.0 2016 8:25 D deficienc AM [Mass/vol y has ume] in been Serum or defined Plasma by the [place] ofMedicin e and an Endocrine Society practice guideline as alevel of serum 25-OH vitamin D less than 20 ng/mL (1,2).The Endocrine Society went on to further define vitamin Dinsuffic iency as a level between 21 and 29 ng/mL (2).1. IOM (Institut e of Medicine) . 2010. Dietary reference intakes for calcium and D. [place]: [employer].2. Jacky MF, Candido NC, Cinthia Longo IZQUIERDO, et al.Evalua tion, treatment , and preventio n of vitamin Ddeficien cy: an Endocrine Society clinical practiceg uideline. JCEM. 2010; 96(7):191 1-30.Perf ormed at: - [facility] [place] [address] [place], [place] [id number] Professional Driver: Omero Field PhD, Phone: [phone] Comprehensive metabolic 2000 panel in Serum or Plasma Observa Value Referen Units Interpr Notes Date tion ce etation Range Albumin/G 1.1 - 1.8 No Low No Sep 21 lobulin informati informati 2016 8:25 [Mass on in on in AM ratio] in source source Serum or data data Plasma Albumin 3.4 - 5.0 gm/dL Normal No Sep 21 [Mass/vol informati 2016 8:25 ume] in on in AM Serum or source Plasma data Alkaline 46 - 116 U/L Normal No Sep 21 phosphata informati 2016 8:25 se on in AM [Enzymati source c data activity/ volume] in Serum or Plasma Bilirubin 0.2 - 1.0 mg/dL Normal No Sep 21 .total informati 2016 8:25 [Mass/vol on in AM ume] in source Serum or data Plasma Urea 7 - 18 mg/dL High No Sep 21 nitrogen informati 2016 8:25 [Mass/vol on in AM ume] in source Serum or data Plasma Calcium 8.5 - mg/dL Normal No Sep 21 [Mass/vol 10.1 informati 2016 8:25 ume] in on in AM Serum or source Plasma data Chloride 98 - 107 mmoL/L Normal No Sep 21 [Moles/vo informati 2016 8:25 lume] in on in AM Serum or source Plasma data Carbon 21.0 - mmoL/L Normal No Sep 21 dioxide, 32.0 informati 2016 8:25 total on in AM [Moles/vo source lume] in data Serum or Plasma Creatinin 0.55 - mg/dL Normal No Sep 21 e 1.02 informati 2016 8:25 [Mass/vol on in AM ume] in source Serum or data Plasma Estimated 59- ML/MIN No REFERENCE Sep 21 informati RANGE: 2017 8:25 glomerula on in >60 AM r source ML/MIN/1. filtratio data 73 SQUARE n rate METERSIf (GF this patient is -A merican, then multiply theresult by 1.210. Globulin 1.3 - 3.2 gm/dL High No Sep 21 [Mass/vol informati 2016 8:25 ume] in on in AM Serum source data Glucose 74 - 106 mg/dL High No Sep 21 [Mass/vol informati 2016 8:25 ume] in on in AM Serum or source Plasma data Potassium 3.5 - 5.1 mmoL/L Normal No Sep 21 informati 2016 8:25 [Moles/vo on in AM lume] in source Serum or data Plasma Sodium 136 - 145 mmoL/L Normal No Sep 21 [Moles/vo informati 2016 8:25 lume] in on in AM Serum or source Plasma data Aspartate 15 - 37 U/L Low No Sep 21 informati 2016 8:25 aminotran on in AM sferase source [Enzymati data c activity/ volume] in Serum or Plasma Alanine 12 - 78 U/L Normal No Sep 21 aminotran informati 2016 8:25 sferase on in AM [Enzymati source c data activity/ volume] in Serum or Plasma Protein 6.4 - 8.2 gm/dL Normal No Sep 21 [Mass/vol informati 2016 8:25 ume] in on in AM Serum or source Plasma data Lipid 1996 panel in Serum or Plasma Observa Value Referen Units Interpr Notes Date tion ce etation Range Cholester < 200 mg/dL No No Sep 21 ol informati informati 2016 8:25 [Moles/vo on in on in AM lume] in source source Unspecifi data data ed specimen Cholester 40 - 60 MG/DL High No Sep 21 ol in HDL informati 2016 8:25 on in AM [Mass/vol source ume] in data Serum or Plasma Cholester 0 - 130 mg/dL Normal No Kennedy 12 ol in LDL informati 2016 8:25 on in AM [Mass/vol source ume] in data Serum or Plasma by calculati on Triglycer 30 - 200 mg/dL Normal No Sep 21 bronson inform2016 8:25 [Moles/vo on in AM lume] in source Serum or data Plasma Cholester 0 - 40 No Normal No Sep 21 ol in informati informati 2016 8:25 VLDL on in on in AM [Mass/vol source source ume] in data data Serum or Plasma Thyroxine (T4) [Mass/volume] in Serum or Plasma Observa Value Referen Units Interpr Notes Date tion ce etation Range Thyroxine 4.7 - ug/dl Normal No Sep 21 (T4) 13.3 informati 2016 8:25 [Mass/vol on in AM ume] in source Serum or data Plasma Thyrotropin [Units/volume] in Serum or Plasma Observa Value Referen Units Interpr Notes Date tion ce etation Range Thyrotrop 0.358 - uIU/ml Normal No Sep 21 in 3.740 informati 2016 8:25 [Units/vo on in AM lume] in source Serum or data Plasma CBC W Auto Differential panel in Blood Observa Value Referen Units Interpr Notes Date tion ce etation Range Basophils 0 - 0.2 K/MM3 Normal No Sep 21 informati 2016 8:25 [#/volume on in AM ] in source Blood by data Automated count Basophils 0.1 - 2.0 % Normal No Sep 21 / informati 2016 8:25 leukocyte on in AM s in source Blood by data Automated count Eosinophi 0.0 - 0.4 K/mm3 Normal No Sep 21 ls ati 2016 8:25 [#/volume on in AM ] in source Blood by data Automated count Eosinophi 0.1 - % Normal No Sep 21 ls/100 12.0 informati 2016 8:25 leukocyte on in AM s in source Blood by data Automated count Granulocy 1.8 - 7.8 K/mm3 Normal No Sep 21 eusebio informati 2016 8:25 [#/volume on in AM ] in source Blood by data Automated count Granulocy 37.0 - % Normal No Sep 21 eusebio/100 80.0 informati 2016 8:25 leukocyte on in AM s in source Blood by data Automated count Hematocri 37.0 - % Normal No Sep 21 t [Volume 47.0 informati 2017 8:25 on in AM Fraction] source of Blood data Hemoglobi 12.2 - g/dL Normal No Sep 21 n 16.2 informati 2017 8:25 [Mass/vol on in AM ume] in source Blood data Lymphocyt 0.7 - 4.5 K/mm3 Normal No Sep 21 es informati 2017 8:25 [#/volume on in AM ] in source Unspecifi data ed specimen by Automated count Lymphocyt 10 - 50.0 % Normal No Sep 21 es informati 2016 8:25 [#/volume on in AM ] in source Unspecifi data ed specimen by Automated count Erythrocy 27 - 31.2 pg Normal No Sep 21 te mean informati 2017 8:25 corpuscul on in AM ar source hemoglobi data n [Entitic mass] Erythrocy 31.8 - g/dl Low No Sep 21 te mean 35.4 informati 2016 8:25 corpuscul on in AM ar source hemoglobi data n concentra tion [Mass/vol ume] by Automated count Erythrocy 82.2 - fl Normal No Sep 21 te mean 97.8 informati 2016 8:25 corpuscul on in AM ar volume source [Entitic data volume] by Automated count Monocytes 0.1 - 1.0 K/mm3 Normal No Sep 12 informati 2017 8:25 [#/volume on in AM ] in source Blood by data Automated count Monocytes 1.7 - 9.3 % Normal No Sep 12 /100 informati 2017 8:25 leukocyte on in AM s in source Blood by data Automated count Platelet 7.4 - fl Normal No Sep 21 mean 10.4 informati 2017 8:25 volume on in AM [Entitic source volume] data in Blood by Automated count Platelets 142 - 424 K/mm3 Normal No Sep 12 informati 2017 8:25 [#/volume on in AM ] in source Blood data Erythrocy 4.2 - 5.4 M/mm3 Normal No Sep 12 eusebio informati 2017 8:25 [#/volume on in AM ] in source Amniotic data fluid Erythrocy 11.5 - % Normal No Sep 21 te 17.5 informati 2017 8:25 distribut on in AM ion width source [Entitic data volume] by Automated count Leukocyte 4.8 - K/MM3 Normal No Sep 12 s 10.8 informati 2016 8:25 [#/volume on in AM ] in source Blood data Hemoglobin A1c in Blood Observa Value Referen Units Interpr Notes Date tion ce etation Range Hemoglo 7.2 0.0 - % High < 6% Sep 21 bin A1c 7.0 NON-DIONISIO 2017 in CRYSTAL 8:25 AM Blood LEVEL< 7% CONTROL LED DIABETI C LEVEL> 8% POORLY CONTROL LED DIABETI C LEVEL
--- OUTSIDE RECORDS SUMMARY | 2017-02-21 20:49 | External Medical Summary Rpt ---
[...] AM ume] in source Serum or data [place] [address] [address] [place], [place] [id number] Retort Cooler: Omero Field PhD, Phone: [phone] Renal function 2000 panel in Serum [...] been Serum or defined Plasma by the [place] ofMedicin e and an Endocrine Society practice [...] 2010; 96(7):191 1-30.Perf ormed at: - [facility] [place] [address] [place] [id number] Retort Cooler: Omero Field PhD, Phone: [phone] Urinalysis dipstick W Reflex Microscopic panel [...] Urine data creatPerf ormed at: - [facility] [place] [address] [place] [id number] Retort Cooler: Omero Field PhD, Phone: [phone] Creatinin Not mg/dL No No Sep [...] been Serum or defined Plasma by the [place] ofMedicin e and an Endocrine Society practice guideline as alevel of serum 25-OH vitamin D less than 20 ng/mL (1,2).The Endocrine Society went on to further define vitamin Dinsuffic iency as a level between 21 and 29 ng/mL (2).1. IOM (Institut e of Medicine) . 2010. Dietary reference intakes for calcium and D. [place]: [employer].2. Jacky MF, Candido NC, Cinthia Longo IZQUIERDO, et al.Evalua tion, treatment , and preventio n of vitamin Ddeficien cy: an Endocrine Society clinical practiceg uideline. JCEM. 2010; 96(7):191 1-30.Perf ormed at: - [facility] [place] [address] [place], [place] [id number] Retort Cooler: Omero Field PhD, Phone: [phone] Comprehensive metabolic 2000 panel in Serum [...]
[2017-02-21] MEDS ORDERED: FLONASE ALLERG9.9 ML NS (21:00)
[2017-02-21] MEDS ORDERED: ZITHROMAX Z-PA250 M2 PO (21:00)
[2017-02-21 21:01] VITALS: BP 141/93
--- NOTE | 2017-02-21 21:01 | Urgent Treatment Center Report ---
History of Present Issue Date/Time Seen by Provider 02/21/172056 Visit Reason Pt arrived:Walked Presenting Problem:PT C/O SORE THROAT, HEADACHE, COUGH. Location if Accident: Onset of symptoms date/time:/ or onset unknown for:MEDICAL HX UNKNOWN Have you (or family members/close friends) recently traveled outside the [place]? N If Yes, where/when: Have you had exposure to infectious disease within the past month? TB? Other? Specify: Source patient, RN notes reviewed Exam Limitations no limitations Comment 56-year-old female presents for nasal congestion, sinus pressure, pressure in her posterior neck, coughing, for 3-4 days. ALLERGIES Coded Allergies: Sulfa (Sulfonamide Antibiotics) (Mild, HIVES, ITCHING 04/06/16) amoxicillin (From AUGMENTIN) (Mild, NA-NAUSEA 05/29/16) clavulanic acid (From AUGMENTIN) (Mild, NA-NAUSEA 05/29/16) hydrocodone (From NORCO) (Mild, HIVES, ITCHING 04/06/16) naproxen (Mild, HIVES, ITCHING 04/06/16) Home Medications Reported Medications Metformin HCL (Metformin) 500 MG PO BID Losartan Potassium (Losartan 100MG) 100 MG PO DAILY OXYBUTYNIN CHLORIDE (Oxybutynin 5MG Tab) 5 MG PO BID Alprazolam (Xanax 0.25MG) 0.25 MG PO BID Glimepiride (Glimepiride 4MG Tablet) 4 MG PO DAILY #30 Rosuvastatin Calcium (Crestor) 10 MG PO QHS Esomeprazole Magnesium (Nexium) 40 MG PO DAILY CHOLECALCIFEROL (VITAMIN D3) (Vitamin D) 50,000 IUNITS PO DAILY History Medical History General CAD? No Angina: Yes ND: No Hypertension? Yes Hyperlipidemia? No CHF? No DVT? No PE? No COPD? No Asthma? No Anemia? Yes GERD? No Gastric ulcers? Yes GI Bleed? No Hernia? No Thyroid Problems? No Hypothyroidism? No CVA? No Seizures? No Diabetes? Yes Insulin Dependent: No Insulin Pump: No Home FSBS? Yes Renal Insuffiency? No UTI? Yes Stones? No BPH? No GB Disease: No Nephritic Syndrome? No Asplenia? No Hepatitis? No Sickle Cell Disease? No Arthritis? Yes Migraines? No Cataracts? No Glaucoma? No MRSA? No HIV? No TB? No Anxiety? Yes Depression? Yes Cancer? No More? Yes Additional hx: DEGENERATIVE ARTHRITIS, DEPRESSION, ANXIETY. Immunization HX DT/Tetanus 1-4 YRS Flu LAST YEAR Pneumonia NEVER Surgical Hx Previous Surgery?Y D & C Tubal Ligation CONE BX BARTHOLIN'S CYST HYSTERECTOMY 2000 CARPEL TUNNEL SURGERY HEART CATH ENDOCSOPY COLONOSCOPY Family History Family HX Diabetes Yes CAD No Hypertension No Hyperlipidemia No Cancer No TB Yes Social History Smoking Hx Smoker: Current Every Day Smoker Tobacco: Yes Type Cigarettes Packs/day < 1 Pack Alcohol Alcohol: No Review of Systems All Other Systems Reviewed and Negative ENT see HPI, nose congestion. Respiratory see HPI, cough Physical Exam Vital Signs Vital Signs Date Time Temp Pulse Resp B/P Pulse O2 O2 Flow FiO2 Ox Delivery Rate 02/21 2055 98.1 97 20 141/93 98 - WBC >12,000 or <4,000 or 10% bands? 2 or more SIRS Criteria Met? B/P:141/93 MAP:109 Creatinine >2.0? UA output<0.5ml/kg/hr for 2 hrs? Platelet count >100,000? Lactate >2.0mmol/1? INR >1.2 or PTT > than 60 sec? Evidence of Organ Dysfunction? Provider documented clinical suspician of infection? Sepsis Criteria Count: 2 Sepsis Risk: General Appearance normal appearance, WD/WN, no apparent distress Eye Exam - bilateral eye normal exam, bilateral eye PERRL, bilateral eye EOMI Ear, Nose, Throat hearing grossly normal, sinus pain/drainage, nasal congestion, pharyngeal erythema Neck normal inspection, full range of motion Respiratory Status Yes: trachea midline, chest symmetrical, non tender chest. No: respiratory distress. Lung Sounds bilateral: normal breath sounds, lungs clear. Cardiovascular normal exam, regular rate/rhythm Neurologic alert, normal exam, oriented x 3 Medical Decision Making LABS/Meds/Orders Pt receiving controlled substance in ED? No Results/Orders Current Medication Orders Sig/Octavio Start time Last Medication Dose Route Stop Time Status Admin Dexamethasone Sodium 4 MG ONCE ONE 02/21 2100 AC 02/21 Phosphate IM 02/21 Dexamethasone Sodium 0 .STK-MED ONE 02/22 2052 DC Phosphate .ROUTE Departure Departure Time of Disposition 2058 Disposition DC Home or Self Care(routine) Clinical Impression Primary Impression: Sinusitis Qualifiers: Sinusitis location: maxillary Chronicity: acute Recurrence: non- recurrent Qualified Code: J01.00 - Acute maxillary sinusitis, unspecified Condition STABLE Referrals Karan PITTS,Germán Chakraborty (Family) Patient Instructions DI for Sinusitis, Sinusitis Additional Instructions Antibiotics as ordered Monitor glucose closely due to steroid injection Follow-up in the office on sooner if needed If symptoms worsen or do not improve return or be seen in the ER Discharge Counseling Counseled pt/family regarding diagnosis, medications/RX, home care, follow up needs Prescriptions Current Visit Scripts Azithromycin (Zithromax) 250 MG PO DAILY #6 TAB USE DIRECTED. Fluticasone Propionate (Flonase Allergy Relief) 9.9 ML NS DAILY 14 Days at 2101
== END 2017-02-21 21:01 ==
LOC: UTC 20:41
DX: J01.00 Acute maxillary sinusitis, unspecified (principal); E11.9 Type 2 diabetes mellitus without complications; F41.9 Anxiety disorder, unspecified; F32.9 Major depressive disorder, single episode, unspecified; I10 Essential (primary) hypertension; F17.210 Nicotine dependence, cigarettes, uncomplicated; Z88.1 Allergy status to other antibiotic agents; Z88.5 Allergy status to narcotic agent; Z88.2 Allergy status to sulfonamides; Z91.09 Other allergy status, other than to drugs and biological substances; Z79.84 Long term (current) use of oral hypoglycemic drugs; Z79.899 Other long term (current) drug therapy; Z87.11 Personal history of peptic ulcer disease

== ENCOUNTER → 2017-02-26 | Outpatient (CLI) | payer BC ==
[~2017-02-26] MED LIST changes: +FLONASE ALLERG9.9 ML NS; +ZITHROMAX Z-PA250 M2 PO
[2017-02-26 07:55] LABS: HEMOGLOBIN 12.5 g/dL (12.2-16.2); LYMPH # 2.5 K/mm3 (0.7-4.5)
[2017-02-26 08:14] LABS: BUN 16 mg/dL (7-18); GFR (ESTIMATED) 87 ML/MIN (59-)
[2017-02-27 08:39] LABS: Vitamin D, 25-Hydroxy 48.1 ng/mL (30.0-100.0)
== END ==
LOC: LAB 07:11
PROVIDERS: Emergency Medicine
DX: E55.9 Vitamin D deficiency, unspecified (principal); E11.39 Type 2 diabetes mellitus with other diabetic ophthalmic complication; R53.83 Other fatigue

== ENCOUNTER 2017-03-18 15:51 | Emergency (ER) | payer BC ==
[~2017-03-18] VITALS: Ht 157.5 cm; Wt 108.9 kg
--- OUTSIDE RECORDS SUMMARY | 2017-03-18 16:02 | External Medical Summary Rpt | CCD ---
Author Author , ASHLEY RAMIREZ Address Unknown Phone [email or web address] Care Team Providers Care Sports Marketer Name Role Phone [facility] Unavailable Unavailable INC, [facility], Unavailable Unavailable [facility] Unavailable Unavailable IM[facility]ING [facility], [facility] Stanley Russo MD, Unavailable Unavailable Stanley FERNANDES MD, Unavailable Unavailable ALEXIS FERNANDES MD [facility] Unavailable Unavailable EMERGENCY PHYS, [facility] Fredy Lopez MD, Unavailable Unavailable Fredy Lopez MD [...] 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 I63.9 [...] and signs involving the musculoskel etal system 55797 ABDOMINAL 07-27-2014 [place] PAIN RIGHT MEDICAL UPPER IMAGING ASS QUADRANT 6110 INFLAMMATOR 02-28-2014 [facility] Y DISEASE [facility] GROUP 4779 ALLERGIC 01-20-2014 [facility] RHINITIS N EMERGENCY CAUSE PHYS UNSPECIFIED 7840 HEADACHE 01-20-2014 [facility] 32532 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-2013 [facility]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 7231 CERVICALGIA 11-10-2013 [facility] INC V571 OTHER 11-10-2013 [facility] THERAPY INC 29034 DIAB W/O 09-19-2013 [facility] II/UNS NOT INC STATED UNCNTRL 52416 OTHER 09-19-2013 [facility] FATIGUE INC 05084 DIAB 09-17-2013 [facility] W/NEURO N EMERGENCY MANIFESTS PHYS TYPE II/UNS NOT UNCNTRL 3572 POLYNEUROPA 09-17-2013 [facility] THY IN N EMERGENCY DIABETES PHYS 7224 DEGENERATIO 09-17-2013 [facility] N OF N EMERGENCY CERVICAL PHYS INTERVERTEB RAL DISC V454 ARTHRODESIS 09-17-2013 [place] [facility] 4619 ACUTE 07-17-2013 [facility] SINUSITIS, PHYSICIANS UNSPECIFIED GROUP 05720 SHORTNESS 07-15-2013 [place] [facility] 76269 CHEST PAIN 07-15-2013 [facility] UNSPECIFIED MEDICAL IMAGING ASS 7866 SWELLING, 05-17-2013 [place] MEDICAL LUMP IN IMAGING ASS CHEST 250.00 250.00 DIAB 02-20-2013 Isabel [facility], [facility] Hospital II OR UNSPEC TYPE, NOT UNCNTRLD 305.1 305.1 02-20-2013 Isabel TOBACCO USE [facility] 401.9 401.9 02-20-2013 Isabel HYPERTENSIO [facility] N NOS Hospital 413.9 413.9 02-20-2013 Isabel ANGINA [facility] PECTORIS [facility] NEC/NOS 466.0 466.0 ACUTE 02-20-2013 Isabel BRONCHITIS [facility] V14.8 V14.8 02-20-2013 Isabel HX-DRUG [facility] ALLERGY [facility] Hospital 360.00 360.00 12-17-2012 [place] PURULENT [facility] ENDOPHTHALM Hospital NOS 787.23 787.23 06-20-2012 Isabel DYSPHAGIA, [facility] PHARYNGEAL [facility] PHASE B37.3 CANDIDIASIS OF VULVA AND VAGINA E11.40 TYPE 2 DIABETES MELLITUS WITH DIABETIC NEUROPATHY, UNSP E11.9 TYPE 2 DIABETES MELLITUS WITHOUT COMPLICATIO NS F41.0 PANIC DISORDER WITHOUT AGORAPHOBIA [id number] J01.90 ACUTE SINUSITIS, UNSPECIFIED J02.8 ACUTE PHARYNGITIS [...] to Substance Substance Reaction Severity SULFA (sulfonamide) H-OOZPAR-TVZD/THROAT Severe Aspirin Unknown Intermediate Naproxen I-ITCHING Intermediate [...] Order Detail nces retati t Range on CBC w auto diff (02-26-2017 07:13) Baso % 2 = 1.0 % 0.1-2.0 complet 017 ed 07:13 Automat 2 = 0.3 0.0-0.4 complet ed 017 K/mm3 ed blood 07:13 eosinop hil count Automat = 3.6 % 0.1-12. complet ed 017 0 ed blood 07:13 eosinop hils/10 0 leukocy t Blood = 5.1 1.8-7.8 complet granulo 017 K/mm3 ed cytes 07:13 automat ed count (numb Granulo = 60.4 37.0-80 complet cyte 017 % .0 ed percent 07:13 age Blood = 39.7 37.0-47 complet hematoc 017 % .0 ed rit 07:13 (volume fractio n) Blood = 12.5 12.2-16 complet hemoglo 017 g/dL .2 ed bin 07:13 measure ment (mass/v olum Absolut = 2.5 0.7-4.5 complet e 017 K/mm3 ed lymphoc 07:13 yte count Lymphoc = 29.0 10-50.0 complet yte 017 % ed count, 07:13 blood, automat ed Mean = 27.4 27-31.2 complet corpusc 017 pg ed ular 07:13 hemoglo bin ([facility]) determ Automat = 31.6 31.8-35 complet ed 017 g/dl .4 ed erythro 07:13 cyte mean corpusc ular h Automat = 86.8 82.2-97 complet ed 017 fl .8 ed erythro 07:13 cyte mean corpusc ular v Absolut = 0.5 0.1-1.0 complet e 017 K/mm3 ed monocyt 07:13 e count [place] % = 5.9 % 1.7-9.3 complet 017 ed 07:13 Automat = 7.5 7.4-10. complet ed 017 fl 4 ed blood 07:13 platele t mean volume kai Blood = 302 142-424 complet platele 017 K/mm3 ed t count 07:13 Red = 4.57 4.2-5.4 complet blood 017 M/mm3 ed cell 07:13 count Automat = 15.7 11.5-17 complet ed 017 % .5 ed erythro 07:13 cyte distrib ution width Blood = 8.5 4.8-10. complet leukocy 017 K/MM3 8 ed eusebio 07:13 count (number /volume ) Automat = 0.1 0-0.2 complet ed 017 K/MM3 ed blood 07:13 basophi l count (count/ vo Hemoglobin A1c measurement (02-26-2017 07:13) Hemoglo 8.6 % 0.0-7.0 complet bin A1c 017 ed 07:13 Comment: < 6% NON-DIABETIC LEVEL Comment: < 7% CONTROLLED DIABETIC LEVEL Comment: > 8% POORLY CONTROLLED DIABETIC LEVEL Comprehensive metabolic panel (02-26-2017 07:13) Serum = 0.8 1.1-1.8 complet or 017 ed plasma 07:13 albumin /globul in mass ra Serum = 3.2 3.4-5.0 complet or 017 gm/dL ed plasma 07:13 albumin measure ment (mas Serum = 134 46-116 complet or 017 U/L ed plasma 07:13 alkalin e phospha tase kai Serum = 0.3 0.2-1.0 complet or 017 mg/dL ed plasma 07:13 total bilirub in measure m Serum = 16 7-18 complet or 017 mg/dL ed plasma 07:13 urea nitroge n measure men Serum = 9.1 8.5-10. complet or 017 mg/dL 1 ed plasma 07:13 calcium measure ment (mas Serum = 101 98-107 complet or 017 mmoL/L ed plasma 07:13 chlorid e measure ment (mo Carbon = 30 21.0-32 complet dioxide 017 mmoL/L .0 ed 07:13 measure ment Serum = 0.7 0.55-1. complet or 017 mg/dL 02 ed plasma 07:13 creatin ine measure ment ( Estimat = 87 59- complet ed 017 ML/MIN ed glomeru 07:13 lar filtrat ion rate (GF Comment: REFERENCE RANGE: >60 ML/MIN/1.73 SQUARE METERS Comment: If this patient is -[place]in[place], then multiply the Comment: result by 1.210. Serum 11-17-2 = 4.2 1.3-3.2 complet globuli 017 gm/dL ed n 07:13 measure ment (mass/v olume) Serum 11-17-2 = 185 74-106 complet or 017 mg/dL ed plasma 07:13 glucose measure ment (mas Serum -17-2 = 3.7 3.5-5.1 complet potassi 017 mmoL/L ed um 07:13 measure ment Serum 11-17-2 = 139 136-145 complet sodium 017 mmoL/L ed measure 07:13 ment Serum 11-17-2 = 15 15-37 complet or 017 U/L ed plasma 07:13 asparta te aminotr ansfera ALT 02-26-2 = 24 12-78 complet (SGPT) 017 U/L ed ser/erickson 07:13 s Protein --2 = 7.4 6.4-8.2 complet total 017 gm/dL ed ser/erickson 07:13 s Thyroxine (02-26-2017 07:13) Thyroxi --2 = 8.9 4.7-13. complet ne 017 ug/dl 3 ed 07:13 Serum or plasma thyroid stimulating horm (02-26-2017 07:13) Serum 11-17-2 = 2.64 0.358-3 complet or 017 uIU/ml .740 ed plasma 07:13 thyroid stimula ting horm Vitamin B12 ser/plas (02-26-2017 07:13) Vitamin -17-2 = 1856 211-946 complet B12 017 pg/mL ed ser/erickson 07:13 s Comment: Performed at: [facility] Comment: [address], [place] [id number] Comment: Tour Bus Driver/Guide: Omero Field PhD, Phone: [phone] Serum or plasma 25-hydroxyvitamin D yared (02-26-2017 07:13) Serum 11-17-2 = 48.1 30.0-10 complet or 017 ng/mL 0.0 ed plasma 07:13 25-hydr oxyvita min D yared Comment: Vitamin D deficiency has been defined by the [place] of Comment: Medicine and an Endocrine Society practice guideline as a Comment: level of serum 25-OH vitamin D less than 20 ng/mL (1,2). Comment: The Endocrine Society went on to further define vitamin D Comment: insufficiency as a level between 21 and 29 ng/mL (2). Comment: 1. IOM ([place] of Medicine). 2010. Dietary reference Comment: intakes for calcium and D. Zhao DC: The Comment: [employer]. Comment: 2. Jacky MF, Candido NC, Dolly IZQUIERDO, et al. Comment: Evaluation, treatment, and prevention of vitamin D Comment: deficiency: an Endocrine Society clinical practice Comment: guideline. JCEM. 2010; 96(7):1911-30. Comment: Performed at: [facility] Comment: [address], [place] [id number] Comment: Tour Bus Driver/Guide: Omero Field PhD, Phone: [phone] Hemoglobin A1c in Blood (02-26-2017 07:13) Hemoglo 8.6 % 0.0% High complet bin A1c 017 - ed in 07:13 7.0% Blood TSH SerPl DL<=0.005 mIU/L-aCnc (12-04-2016 09:41) TSH 2.72 0.4-4.2 complet SerPl 017 uIU/mL ed DL<=0.0 09:41 05 mIU/L-a [facility] Hgb A1c MFr Bld (12-04-2016 01:24) Hgb [...] End Date Code Location Performer Type Date [facility] - 5 5 [facility] - [facility] - [facility] - [facility] 4 [facility] Emergency SUE Russo MD (ER) 3 23:15 3 00:28 [facility] Emergency SUE FERNANDES (ER) 3 17:15 3 18:47 [facility] MOHAMED Emergency SUE Lopez (ER) 3 12:35 3 13:56 [facility] Fredy
--- OUTSIDE RECORDS SUMMARY | 2017-03-18 16:02 | External Medical Summary Rpt | CCD ---
Author Author , ASHLEY RAMIREZ Address Unknown Phone [email or web address] Care Team Providers Care Rubber Flap Cutter Name Role Phone [facility]available [facility], [facility] Unavailable Un[facility] INC, [facility], Unavailable Unavailable [facility] Unavailable Unavailable IMAGING ASS, [facility] Stanley Russo MD, Unavailable Unavailable Stanley FERNANDES MD, Unavailable Unavailable ALEXIS FERNANDES MD [facility] Unavailable Unavailable EMERGENCY PHYS, [facility] Fredy Lopez MD, Unavailable Unavailable [...] 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 I63.9 Cerebral [...] and signs involving the musculoskel etal system 71153 ABDOMINAL 07-27-2014 [place] PAIN RIGHT MEDICAL UPPER IMAGING ASS QUADRANT 6110 INFLAMMATOR 02-28-2014 [facility] Y DISEASE [facility] 4779 ALLERGIC 01-20-2014 [facility] RHINITIS N EMERGENCY CAUSE PHYS UNSPECIFIED 7840 HEADACHE 01-20-2014 [facility] 72214 DEGEN 11-16-2013 [facility]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 7231 CERVICALGIA 11-10-2013 [facility] INC V571 OTHER 11-10-2013 [facility] THERAPY INC 30794 DIAB W/O 09-19-2013 [facility] II/UNS NOT INC STATED UNCNTRL 41078 OTHER 09-19-2013 [facility] FATIGUE INC 09847 DIAB 09-17-2013 [facility] W/NEURO N EMERGENCY MANIFESTS PHYS TYPE II/UNS NOT UNCNTRL 3572 POLYNEUROPA 09-17-2013 [facility] THY IN N EMERGENCY DIABETES PHYS 7224 DEGENERATIO 09-17-2013 [facility] N OF N EMERGENCY CERVICAL PHYS INTERVERTEB RAL DISC V454 ARTHRODESIS 09-17-2013 [place] [facility] 4619 ACUTE 07-17-2013 [facility] SINUSITIS, PHYSICIANS UNSPECIFIED GROUP 99709 SHORTNESS 07-15-2013 [place] [facility] 35954 CHEST PAIN 07-15-2013 [facility] 7866 SWELLING, 05-17-2013 [place] MEDICAL LUMP IN IMAGING ASS CHEST 250.00 250.00 DIAB 02-20-2013 [facility], [facility] Hospital II OR UNSPEC TYPE, NOT UNCNTRLD 305.1 305.1 02-20-[address] [facility] 401.9 401.9 02-20-2013 Isabel HYPERTENSIO [facility] N NOS Hospital 413.9 413.9 02-20-2013 Isabel ANGINA [facility] PECTORIS [facility] NEC/NOS 466.0 466.0 ACUTE 02-20-2013 Isabel BRONCHITIS [facility] V14.8 V14.8 02-20-2013 Isabel HX-DRUG [facility] ALLERGY [facility] 360.00 360.00 12-17-2012 [place] PURULENT [facility] ENDOPHTHALM Hospital NOS 787.23 787.23 06-20-2012 Isabel DYSPHAGIA, [facility] PHARYNGEAL [facility] PHASE B37.3 CANDIDIASIS OF VULVA AND VAGINA E11.40 TYPE 2 DIABETES MELLITUS WITH DIABETIC NEUROPATHY, UNSP E11.9 TYPE 2 DIABETES MELLITUS WITHOUT COMPLICATIO NS F41.0 PANIC DISORDER WITHOUT AGORAPHOBIA [id number] J01.90 ACUTE SINUSITIS, UNSPECIFIED J02.8 ACUTE PHARYNGITIS [...] to Substance Substance Reaction Severity SULFA (sulfonamide) [id number]-NLPE/THROAT Severe Aspirin Unknown Intermediate Naproxen I-ITCHING Intermediate [...] 017 K/mm3 ed monocyt 07:13 e count [place] % = 5.9 % 1.7-9.3 complet 017 [...] SQUARE METERS Comment: If this patient is -Albanian, then multiply the Comment: result by 1.210. [...] ed ser/erickson 07:13 s Comment: Performed at: [facility] Comment: [address] [place], [place] [id number] Comment: Accordion Maker: Omero Field PhD, Phone: [phone] Serum or plasma 25-hydroxyvitamin D yared (02-26-2017 07:13) Serum 11-17-2 = 48.1 30.0-10 complet or 017 ng/mL 0.0 ed plasma 07:13 25-hydr oxyvita min D yared Comment: Vitamin D deficiency has been defined by the [place] of Comment: Medicine and an Endocrine Society practice guideline as a Comment: level of serum 25-OH vitamin D less than 20 ng/mL (1,2). Comment: The Endocrine Society went on to further define vitamin D Comment: insufficiency as a level between 21 and 29 ng/mL (2). Comment: 1. IOM ([place] of Medicine). 2010. Dietary reference Comment: intakes for calcium and D. Zhao [place]: The Comment: [employer]. Comment: 2. Jacky MF, Candido NC, Dolly IZQUIERDO, et al. Comment: Evaluation, treatment, and prevention of vitamin D Comment: deficiency: an Endocrine Society clinical practice Comment: guideline. JCEM. 2010; 96(7):1911-30. Comment: Performed at: [facility] Comment: [address] [place], [place] [id number] Comment: Accordion Maker: Omero Field PhD, Phone: [phone] Hemoglobin A1c in Blood (02-26-2017 07:13) Hemoglo 8.6 % 0.0% High complet bin A1c 017 - ed in 07:13 7.0% Blood TSH SerPl DL<=0.005 mIU/L-aCnc (12-04-2016 09:41) TSH 2.72 0.4-4.2 complet SerPl 017 uIU/mL ed DL<=0.0 09:41 05 mIU/L-a [facility] Hgb A1c MFr Bld (12-04-2016 01:24) Hgb [...] End Date Code Location Performer Type Date [facility] - 5 5 [facility] - [facility] Emergency SUE Russo MD (ER) 3 23:15 3 00:28 [facility] Emergency SUE FERNANDES (ER) 3 17:15 3 18:[address] [facility] MOHAMED Emergency SUE Lopez (ER) 3 12:35 3 13:[address] [facility] Fredy
--- OUTSIDE RECORDS SUMMARY | 2017-03-18 16:03 | External Medical Summary Rpt | CCD ---
Demographics Preferred Language Czech Marital Status Unknown Yarsani Affiliation Unknown Race Unknown Ethnic Group Unknown Author Author , ASHLEY RAMIREZ Address Unknown Phone Immunization No patient found.
--- OUTSIDE RECORDS SUMMARY | 2017-03-18 16:03 | External Medical Summary Rpt | CCD ---
Author Author , ASHLEY RAMIREZ Address Unknown Phone [email or web address] Care Team Providers Care Environmental Services Technician Name Role Phone [facility] Unavailable Unavailable [facility], [facility] Un[facility] Un[facility] INC, [facility], Unavailable Unavailable [facility] [facility] Unavailable Unavailable [facility], [facility] Unavailable Unavailable [facility]Y [facility], [facility] Purpose Continuity of Care Document - 05-04-2013 through 2016 Problems Code Diagnosis DOS Provider Status 93983 ABDOMINAL 07-27-2014 [place] PAIN RIGHT MEDICAL UPPER IMAGING ASS QUADRANT 6110 INFLAMMATOR 02-28-2014 [facility] Y DISEASE [facility] 4779 ALLERGIC 01-20-2014 [facility] RHINITIS N EMERGENCY CAUSE PHYS UNSPECIFIED 7840 HEADACHE 01-20-2014 [facility] 68583 DEGEN 11-16-2013 [facility] 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 7231 CERVICALGIA 11-10-2013 [facility] INC V571 OTHER 11-10-2013 [facility] THERAPY INC 06389 DIAB W/O 09-19-2013 [facility] II/UNS NOT INC STATED UNCNTRL 63231 OTHER 09-19-2013 [facility] FATIGUE INC 29401 DIAB 09-17-2013 [facility] W/NEURO N EMERGENCY MANIFESTS PHYS TYPE II/UNS NOT UNCNTRL 3572 POLYNEUROPA 09-17-2013 [facility] THY IN N EMERGENCY DIABETES PHYS 7224 DEGENERATIO 09-17-2013 [facility] N OF N EMERGENCY CERVICAL PHYS INTERVERTEB RAL DISC V454 ARTHRODESIS 09-17-2013 [place] [facility] 4619 ACUTE 07-17-2013 [facility] SINUSITIS, PHYSICIANS UNSPECIFIED GROUP 16329 SHORTNESS 07-15-2013 [place] [facility] 96237 CHEST PAIN 07-15-2013 [facility]NS[facility] 7866 SWELLING, 05-17-2013 [facility] [place] MEDICAL [facility] IN IMAGING ASS CHEST Encounters Encounter Start End Date Code Location Performer Type Date [facility] - 5 5 [facility] ISABEL - 4 4 [facility] IS[facility] - 4 4 [facility] IS[facility] - 4 4 [facility] IS[facility]EL - 4 4 [facility]EL - 4 4 [facility] - 4 4 [facility]
--- OUTSIDE RECORDS SUMMARY | 2017-03-18 16:03 | External Medical Summary Rpt | CCD ---
Author Author , ASHLEY RAMIREZ Address Unknown Phone [email or web address] Care Team Providers Care Stretching Machine Operator Name Role Phone [facility] Unavailable Unavailable [facility], [facility] Un[facility] Un[facility] INC, [facility], Unavailable Unavailable [facility] Unavailable Unavailable [facility], [facility] Unavailable Unavailable EMERGENCY PH[facility], [facility] Purpose Continuity of Care Document - 05-04-2013 through 2016 Problems Code Diagnosis DOS Provider Status 36350 ABDOMINAL 07-27-2014 [place] [facility]ING [facility] QUADRANT 6110 INFLAMMATOR 02-28-2014 [facility] Y DISEASE [facility] GROUP 4779 ALLERGIC 01-20-2014 [facility] RHINITIS N EMERGENCY CAUSE PHYS UNSPECIFIED 7840 HEADACHE 01-20-2014 [facility]GENC[facility] PHYS 69354 DEGEN 11-16-2013 [facility] 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 7231 CERVICALGIA 11-10-2013 [facility] INC V571 OTHER 11-10-2013 [facility] THERAPY INC 86951 DIAB W/O 09-19-2013 [facility] TYPE [facility] II/UNS NOT INC STATED UNCNTRL 22972 OTHER 09-19-2013 [facility] FATIGUE INC 83710 DIAB 09-17-2013 [facility] W/NEURO N EMERGENCY MANIFESTS PHYS TYPE II/UNS NOT UNCNTRL 3572 POLYNEUROPA 09-17-2013 [facility] THY IN N EMERGENCY DIABETES PHYS 7224 DEGENERATIO 09-17-2013 [facility] N OF N EMERGENCY CERVICAL PHYS INTERVERTEB RAL DISC V454 ARTHRODESIS 09-17-2013 [facility] [facility] 4619 ACUTE 07-17-2013 [facility] SINUSITIS, PHYSICIANS UNSPECIFIED GROUP 75339 SHORTNESS 07-15-2013 [place] [facility] [facility] 82078 CHEST PAIN 07-15-2013 [facility] 7866 SWELLING, 05-17-2013 [facility] [place] MEDICAL LUMP IN IMAGING ASS CHEST Encounters Encounter Start End Date Code Location Performer Type Date [facility] - 5 5 [facility] ISABEL - 4 4 [facility] IS[facility]EL - 4 4 [facility] IS[facility] - 4 4 [facility]EL - 4 4 [facility] IS[facility]EL - 4 4 [facility] IS[facility]EL - 4 4 [facility]
--- OUTSIDE RECORDS SUMMARY | 2017-03-18 16:03 | External Medical Summary Rpt | CCD ---
Demographics Preferred Language Arabic Marital Status Unknown Alevism Affiliation Unknown Race Unknown Ethnic Group Unknown Author Author , ASHLEY RAMIREZ Address Unknown Phone Immunization No patient found.
--- OUTSIDE RECORDS SUMMARY | 2017-03-18 16:04 | External Medical Summary Rpt ---
Author Author ASHLEY Leon, ASHLEY [employer] Organization [employer] Address Unknown Phone Unavailable Results Cobalamin (Vitamin B12) [Mass/volume] in Serum Observa Value Referen Units Interpr Notes Date tion ce etation Range Cobalamin 211 - 946 pg/mL High Performed Feb 26 (Vitamin at: CB 2016 7:13 B12) - [facility] AM [Mass/vol ume] in [id number] Serum 0 [place], [place] [id number] Plant Tender: Omero Field PhD, Phone: [phone] 25-Hydroxyvitamin D [Mass/volume] in Serum or Plasma Observa Value Referen Units Interpr Notes Date ti ce etation Range 25-Hydrox 30.0 - ng/mL No Vitamin D Feb 26 yvitamin 100.0 informati 2016 7:13 D on in deficienc AM [Mass/vol source y has ume] in data been Serum or defined Plasma by the [place] [facility] and an Endocrine Society practice guideline as alevel of serum 25-OH vitamin D less than 20 ng/mL (1,2).The Endocrine Society went on to further define vitamin Dinsuffic iency as a level between 21 and 29 ng/mL (2).1. IOM (Institut e of Medicine) . 2010. Dietary reference intakes for calcium and D. [place]: [employer] al [employer] Press.2. Jacky MF, Candido NC, Cinthia Longo IZQUIERDO, et al.Evalua tion, treatment , and preventio n of vitamin Ddeficien cy: an Endocrine Society clinical practiceg uideline. JCEM. 2010; 96(7):191 1-30.Perf ormed at: CB - [facility] [id number] [place], [place] [id number] Plant Tender: Omero Field PhD, Phone: [phone] Comprehensive metabolic 2000 panel in Serum or Plasma Observa Value Referen Units Interpr Notes Date ti ce etation Range Albumin/G 1.1 - 1.8 No Low No Feb 26 lobulin informati informati 2016 7:13 [Mass on in on in AM ratio] in source source Serum or data data Plasma Albumin 3.4 - 5.0 gm/dL Low No Feb 26 [Mass/vol informati 2016 7:13 ume] in on in AM Serum or source Plasma data Alkaline 46 - 116 U/L High No Feb 26 phosphata informati 2016 7:13 se on in AM [Enzymati source c data activity/ volume] in Serum or Plasma Bilirubin 0.2 - 1.0 mg/dL Normal No Feb 26 .total informati 2016 7:13 [Mass/vol on in AM ume] in source Serum or data Plasma Urea 7 - 18 mg/dL Normal Feb 26 nitrogen informati 2016 7:13 [Mass/vol on in AM ume] in source Serum or data Plasma Calcium 8.5 - mg/dL Normal Feb 26 [Mass/vol 10.1 informati 2016 7:13 ume] in on in AM Serum or source Plasma data Chloride 98 - 107 mmoL/L Normal No Feb 26 [Moles/vo informati 2016 7:13 lume] in on in AM Serum or source Plasma data Carbon 21.0 - mmoL/L Normal No Feb 26 dioxide, 32.0 informati 2016 7:13 total on in AM [Moles/vo source lume] in data Serum or Plasma Creatinin 0.55 - mg/dL Normal No Feb 26 e 1.02 informati 2016 7:13 [Mass/vol on in AM ume] in source Serum or data Plasma Estimated 59- ML/MIN No REFERENCE Feb 26 informati RANGE: 2017 7:13 glomerula on in >60 AM r source ML/MIN/1. filtratio data 73 SQUARE n rate METERSIf (GF this patient is -A merican, then multiply theresult by 1.210. Globulin 1.3 - 3.2 gm/dL High No Feb 26 [Mass/vol informati 2016 7:13 ume] in on in AM Serum source data Glucose 74 - 106 mg/dL High No Feb 26 [Mass/vol informati 2016 7:13 ume] in on in AM Serum or source Plasma data Potassium 3.5 - 5.1 mmoL/L Normal No Feb 26 informati 2016 7:13 [Moles/vo on in AM lume] in source Serum or data Plasma Sodium 136 - 145 mmoL/L Normal No Feb 26 [Moles/vo informati 2016 7:13 lume] in on in AM Serum or source Plasma data Aspartate 15 - 37 U/L Normal No Feb 26 inform2016 7:13 aminotran on in AM sferase source [Enzymati data c activity/ volume] in Serum or Plasma Alanine 12 - 78 U/L Normal No Feb 26 aminotran ati 2016 7:13 sferase on in AM [Enzymati source c data activity/ volume] in Serum or Plasma Protein 6.4 - 8.2 gm/dL Normal No Feb 26 [Mass/vol informati 2016 7:13 ume] in on in AM Serum or source Plasma data Thyroxine (T4) [Mass/volume] in Serum or Plasma Observa Value Referen Units Interpr Notes Date tion ce etation Range Thyroxine 4.7 - ug/dl Normal No Feb 26 (T4) 13.3 ati 2016 7:13 [Mass/vol on in AM ume] in source Serum or data Plasma Thyrotropin [Units/volume] in Serum or Plasma Observa Value Referen Units Interpr Notes Date tion ce etation Range Thyrotrop 0.358 - uIU/ml No No Feb 26 in 3.740 informati informati 2016 7:13 [Units/vo on in on in AM lume] in source source Serum or data data Plasma Hemoglobin A1c in Blood Observa Value Referen Units Interpr Notes Date tion ce etation Range Hemoglo 8.6 0.0 - % High < 6% Feb 26 bin A1c 7.0 NON-DIONISIO 2017 in BETIC 7:13 AM Blood LEVEL< 7% CONTROL LED DIABETI C LEVEL> 8% POORLY CONTROL LED DIABETI C LEVEL CBC W Auto Differential panel in Blood Observa Value Referen Units Interpr Notes Date tion ce etation Range Basophils 0 - 0.2 K/MM3 Normal No Feb 26 inform2016 7:13 [#/volume on in AM ] in source Blood by data Automated count Basophils 0.1 - 2.0 % Normal No Feb 26 /100 informati 2016 7:13 leukocyte on in AM s in source Blood by data Automated count Eosinophi 0.0 - 0.4 K/mm3 Normal No Feb 26 ls informati 2017 7:13 [#/volume on in AM ] in source Blood by data Automated count Eosinophi 0.1 - % Normal No Feb 26 ls/100 12.0 informati 2017 7:13 leukocyte on in AM s in source Blood by data Automated count Granulocy 1.8 - 7.8 K/mm3 Normal No Feb 26 eusebio informati 2016 7:13 [#/volume on in AM ] in source Blood by data Automated count Granulocy 37.0 - % Normal No Feb 26 eusebio/100 80.0 informati 2017 7:13 leukocyte on in AM s in source Blood by data Automated count Hematocri 37.0 - % Normal No Feb 26 t [Volume 47.0 informati 2016 7:13 on in AM Fraction] source of Blood data Hemoglobi 12.2 - g/dL Normal No Feb 26 n 16.2 informati 2016 7:13 [Mass/vol on in AM ume] in source Blood data Lymphocyt 0.7 - 4.5 K/mm3 Normal No Feb 26 es informati 2016 7:13 [#/volume on in AM ] in source Unspecifi data ed specimen by Automated count Lymphocyt 10 - 50.0 % Normal No Feb 26 es informati 2016 7:13 [#/volume on in AM ] in source Unspecifi data ed specimen by Automated count Erythrocy 27 - 31.2 pg Normal No Feb 26 te mean informati 2016 7:13 corpuscul on in AM ar source hemoglobi data n [Entitic mass] Erythrocy 31.8 - g/dl Low No Feb 26 te mean 35.4 informati 2016 7:13 corpuscul on in AM ar source hemoglobi data n concentra tion [Mass/vol ume] by Automated count Erythrocy 82.2 - fl Normal No Feb 26 te mean 97.8 informati 2016 7:13 corpuscul on in AM ar volume source [Entitic data volume] by Automated count Monocytes 0.1 - 1.0 K/mm3 Normal No Feb 26 informati 2016 7:13 [#/volume on in AM ] in source Blood by data Automated count Monocytes 1.7 - 9.3 % Normal No Feb 26 /100 informati 2017 7:13 leukocyte on in AM s in source Blood by data Automated count Platelet 7.4 - fl Normal No Feb 26 mean 10.4 informati 2016 7:13 volume on in AM [Entitic source volume] data in Blood by Automated count Platelets 142 - 424 K/mm3 Normal No Feb 26 informati 2016 7:13 [#/volume on in AM ] in source Blood data Erythrocy 4.2 - 5.4 M/mm3 Normal No Feb 26 eusebio informati 2016 7:13 [#/volume on in AM ] in source Amniotic data fluid Erythrocy 11.5 - % Normal No Feb 26 te 17.5 informati 2016 7:13 distribut on in AM ion width source [Entitic data volume] by Automated count Leukocyte 4.8 - K/MM3 Normal No Feb 26 s 10.8 informati 2016 7:13 [#/volume on in AM ] in source Blood data CBC W Auto Differential panel in Blood Observa Value Referen Units Interpr Notes Date tion ce etation Range Basophils 0 - 0.2 K/MM3 Normal No Jan 02 informati 2016 8:15 [#/volume on in PM ] in source Blood by data Automated count Basophils 0.1 - 2.0 % Normal No Dec 23 /100 informati 2017 8:15 leukocyte on in PM s in source Blood by data Automated count Eosinophi 0.0 - 0.4 K/mm3 Normal No Jan 02 ls informati 2016 8:15 [#/volume on in PM ] in source Blood by data Automated count Eosinophi 0.1 - % Normal No Jan 02 ls/100 12.0 informati 2016 8:15 leukocyte on in PM s in source Blood by data Automated count Granulocy 1.8 - 7.8 K/mm3 Normal No Jan 02 eusebio informati 2017 8:15 [#/volume on in PM ] in source Blood by data Automated count Granulocy 37.0 - % Normal No Jan 02 eusebio/100 80.0 informati 2016 8:15 leukocyte on in PM s in source Blood by data Automated count Hematocri 37.0 - % Normal No Jan 02 t [Volume 47.0 informati 2016 8:15 on in PM Fraction] source of Blood data Hemoglobi 12.2 - g/dL Normal No Jan 02 n 16.2 informati 2016 8:15 [Mass/vol on in PM ume] in source Blood data Lymphocyt 0.7 - 4.5 K/mm3 Normal No Jan 02 es informati 2016 8:15 [#/volume on in PM ] in source Unspecifi data ed specimen by Automated count Lymphocyt 10 - 50.0 % Normal No Sep 23 es informati 2016 8:15 [#/volume on in PM ] in source Unspecifi data ed specimen by Automated count Erythrocy 27 - 31.2 pg Normal No Sep 23 te mean informati 2016 8:15 corpuscul on in PM ar source hemoglobi data n [Entitic mass] Erythrocy 31.8 - g/dl Normal No Sep 23 te mean 35.4 informati 2016 8:15 corpuscul on in PM ar source hemoglobi data n concentra tion [Mass/vol ume] by Automated count Erythrocy 82.2 - fl Normal No Sep 23 te mean 97.8 informati 2016 8:15 corpuscul on in PM ar volume source [Entitic data volume] by Automated count Monocytes 0.1 - 1.0 K/mm3 Normal No Sep 23 informati 2016 8:15 [#/volume on in PM ] in source Blood by data Automated count Monocytes 1.7 - 9.3 % Normal No Sep 23 /100 informati 2016 8:15 leukocyte on in PM s in [...] M/mm3 Normal No Sep 23 eusebio informati 2016 8:15 [#/volume on in PM [...] No Sep 21 [Mass/vol 10.1 informati 2016 7:04 ume] in on in AM Serum [...] INDICATIO Sep 5 Blood by informati N 2016 Coagulati on in 10:00 AM on assay source INR data RANGETHER APY FOR DVT, PE, ATRIAL FIB; 2.0 - 3.0PROPHY LAXIS FOR VTETHERAP Y FOR MECHANICA L HEART 2.5 - 3.5VALVE; PREVENTIO N OF SYSTEMICE MBOLISM SECONDARY TO AMI Prothromb 9.4 - SECONDS Normal No Sep 5 in time 11.8 informati 2016 (PT) in on in 10:00 AM Platelet source poor data plasma by Coagulati on assay Activated partial thrombplastin time (aPTT) in Platelet poor plasma by Coagulation assay Observa Value Referen Units Interpr Notes Date tion ce etation Range IS PATIENT ON ANTICOAGULANTS? N PTT RESULTS MUST BE CALLED IF PT ON HEPARIN!!! Y Activated 23.6 - SECONDS Normal No Sep 5 partial 34.0 informati 2016 thrombpla on in 10:00 AM stin time source (aPTT) data in Platelet poor plasma by Coagulati on assay CBC W Auto Differential panel in Blood Observa Value Referen Units Interpr Notes Date tion ce etation Range Basophils 0 - 0.2 K/MM3 Normal No Sep 5 inform2016 [#/volume on in 10:00 AM ] in source Blood by data Automated count Basophils 0.1 - 2.0 % Normal No Sep 5 /100 2016 leukocyte on in 10:00 AM s in source Blood by data Automated count Eosinophi 0.0 - 0.4 K/mm3 Normal No Sep 5 ls informati 2016 [#/volume on in 10:00 AM ] in source Blood by data Automated count Eosinophi 0.1 - % Normal No Sep 5 ls/100 12.0 informati 2016 leukocyte on in 10:00 AM s in source Blood by data Automated count Granulocy 1.8 - 7.8 K/mm3 Normal No Sep 5 eusebio informati 2016 [#/volume on in 10:00 AM ] in source Blood by data Automated count Granulocy 37.0 - % Normal No Sep 5 eusebio/100 80.0 informati 2016 leukocyte on in 10:00 AM s in source Blood by data Automated count Hematocri 37.0 - % Normal No Sep 5 t [Volume 47.0 informati 2017 on in 10:00 AM Fraction] source of Blood data Hemoglobi 12.2 - g/dL Normal No Sep 5 n 16.2 informati 2016 [Mass/vol on in 10:00 AM ume] in source Blood data Lymphocyt 0.7 - 4.5 K/mm3 Normal No Sep 5 es inform2016 [#/volume on in 10:00 AM ] in source Unspecifi data ed specimen by Automated count Lymphocyt 10 - 50.0 % Normal No Sep 5 es inform 2017 [#/volume on in 10:00 AM ] in source Unspecifi data ed specimen by Automated count Erythrocy 27 - 31.2 pg Normal No Sep 5 te mean inform2016 corpuscul on in 10:00 AM ar [...] fl Normal No Sep 5 mean 10.4 inform2016 volume on in 10:00 AM [Entitic source volume] data in Blood by Automated count Platelets 142 - 424 K/mm3 Normal No Sep 5 inform2016 [#/volume on in 10:00 AM ] in source Blood data Erythrocy 4.2 - 5.4 M/mm3 Normal No Sep 5 eusebio inform2016 [#/volume on in 10:00 AM ] in source Amniotic data fluid Erythrocy 11.5 - % Normal No Sep 5 te 17.5 inform2016 distribut on in 10:00 AM ion width [...] No No Dec 03 [Mass/vol informati informati 2016 4:35 ume] in on in on in [...] % Normal No Dec 03 /100 informati 2017 3:55 leukocyte on in PM s in [...] K/mm3 No No Dec 03 informati informati 2016 3:55 [#/volume on in on in PM [...] Interpr Notes Date ti ce etation Range Parathyri 15 - 65 pg/mL No Performed Oct 19 n.intact informati at: CB 2017 9:03 [Mass/vol on in - [facility] AM ume] in source Serum or data [address] [address] Plasma 0 [place], [place] [id number] Plant Tender: Omero Field PhD, Phone: [phone] Renal function 2000 panel in Serum or Plasma Observa Value Referen Units Interpr Notes Date tion ce etation Range Albumin 3.4 - 5.0 gm/dL Normal No Oct 19 [Mass/vol informati 2017 9:03 ume] in on in AM Serum [...] - 5.1 mmoL/L Normal No Oct 19 informati 2016 9:03 [Moles/vo on in AM lume] in source Serum or data Plasma Sodium 136 - 145 mmoL/L Normal No Oct 19 [Moles/vo informati 2016 9:03 lume] in on in AM Serum or source Plasma data Phosphate 2.4 - 4.9 mg/dL Normal No Oct 19 informati 2016 9:03 [Moles/vo on in AM lume] in source Unspecifi data ed specimen 25-Hydroxyvitamin D [Mass/volume] in Serum or Plasma Observa Value Referen Units Interpr Notes Date tion ce etation Range 25-Hydrox 30.0 - ng/mL No Vitamin D Oct 19 yvitamin 100.0 informati 2016 9:03 D on in deficienc AM [Mass/vol source y has ume] in data been Serum or defined Plasma by the [place] of[facility] e and an Endocrine Society practice guideline as alevel of serum 25-OH vitamin D less than 20 ng/mL (1,2).The Endocrine Society went on to further define vitamin Dinsuffic iency as a level between 21 and 29 ng/mL (2).1. IOM (Institut e of Medicine) . 2010. Dietary reference intakes for calcium and D. [place]: [employer].2. Jacky MF, [place], Cinthia Longo IZQUIERDO, et al.Evalua tion, treatment , and preventio n of vitamin Ddeficien cy: an Endocrine Society clinical practiceg uideline. JCEM. 2010; 96(7):191 1-30.Perf ormed at: - [facility] [address] [address] [address] [place], [place] [id number] Plant Tender: Omero Field PhD, Phone: [phone] Urinalysis dipstick W Reflex Microscopic panel [...] No Oct 19 gravity 1.030 informati informati 2017 9:03 of Urine on in on in AM source source data data Epithel 5-10 0 - 5 #/hpf No No Oct 19 ial informa informa 2017 cells.s tion in tion in 9:03 AM [...] - 2.0 % Normal No Oct 19 informati 2017 9:03 leukocyte on in AM s in source Blood by data Automated count Eosinophi 0.0 - 0.4 K/mm3 Normal No Oct 19 ls informati 2016 9:03 [#/volume on in AM ] in source Blood by data Automated count Eosinophi 0.1 - % Normal No Oct 19 ls/100 12.0 informati 2016 9:03 leukocyte on in AM s in source Blood by data Automated count Granulocy 1.8 - 7.8 K/mm3 Normal No Oct 19 eusebio informati 2016 9:03 [#/volume on in AM ] in source Blood by data Automated count Granulocy 37.0 - % Normal No Oct 19 80.0 informati 2016 9:03 leukocyte on in AM s in source Blood by data Automated count Hematocri 37.0 - % Normal No Oct 19 t [Volume 47.0 informati 2016 9:03 on in AM Fraction] source of Blood data Hemoglobi 12.2 - g/dL Normal No Oct 19 n 16.2 informati 2017 9:03 [Mass/vol on in AM ume] in source Blood data Lymphocyt 0.7 - 4.5 K/mm3 Normal No Oct 19 es informati 2017 9:03 [#/volume on in AM [...] No Oct 19 te mean 35.4 informati 2017 9:03 corpuscul on in AM ar source hemoglobi data n concentra tion [Mass/vol ume] by Automated count Erythrocy 82.2 - fl Normal No Oct 19 te mean 97.8 informati 2016 9:03 corpuscul on in AM ar volume source [Entitic data volume] by Automated count Monocytes 0.1 - 1.0 K/mm3 Normal No Oct 19 informati 2016 9:03 [#/volume on in AM ] in source Blood by data Automated count Monocytes 1.7 - 9.3 % Normal No Oct 19 / informati 2016 9:03 leukocyte on in AM s in source Blood by data Automated count Platelet 7.4 - fl Normal No Oct 19 mean 10.4 inform2016 9:03 volume on in AM [Entitic source volume] data in Blood by Automated count Platelets 142 - 424 K/mm3 Normal No Oct 19 inform2016 9:03 [#/volume on in AM ] in source Blood data Erythrocy 4.2 - 5.4 M/mm3 Normal No Oct 19 eusebio inform2016 9:03 [#/volume on in AM ] in source Amniotic data fluid Erythrocy 11.5 - % Normal No Oct 19 te 17.5 informati 2016 9:03 distribut on in AM ion width source [Entitic data volume] by Automated count Leukocyte 4.8 - K/MM3 Normal No Oct 19 s 10.8 inform2016 9:03 [#/volume on in AM ] in source Blood data Creatinine [Mass/volume] in Urine Observa Value Referen Units Interpr Notes Date tion ce etation Range Creatinin 20 - 320 mg/dL Normal No Oct 19 e 2016 9:03 [Mass/vol on in AM ume] in source Urine data Protein [Presence] in Urine Observa Value Referen Units Interpr Notes Date tion ce etation Range Protein 50.6 0.0 - mg/dL High No Oct 19 11.9 inform2016 [Presen tion in 9:03 AM ce] in [...] No Oct 15 gravity 1.030 informati informati 2016 2:40 of Urine on in on in [...] Normal No Oct 03 [Mass/vol 10.1 informati 2017 7:20 ume] in on in AM Serum or source Plasma data Chloride 98 - 107 mmoL/L Normal No Oct 03 [Moles/vo informati 2016 7:20 lume] in on in AM Serum or source Plasma data Carbon 21.0 - mmoL/L Normal No Oct 03 dioxide, 32.0 informati 2017 7:20 total on in AM [Moles/vo source lume] in data Serum or Plasma Creatinin 0.55 - mg/dL Normal No Oct 03 e 1.02 informati 2017 7:20 [Mass/vol on in AM ume] in source Serum or data Plasma Creatinin 50 - 200 ML/MIN Normal No Oct 03 e renal informati 2017 7:20 clearance on in AM source predicted [...] 5.1 mmoL/L Normal No Oct 03 informati 2017 7:20 [Moles/vo on in AM lume] in source Serum or data Plasma Sodium 136 - 145 mmoL/L Normal No Oct 03 [Moles/vo informati 2017 7:20 lume] in on in AM Serum [...] No Oct 03 te mean 97.8 informati 2017 7:20 corpuscul on in AM ar volume source [Entitic data volume] by Automated count Monocytes 0.1 - 1.0 K/mm3 Normal No Sep 24 informati 2017 7:20 [#/volume on in AM ] in source Blood by data Automated count Monocytes 1.7 - 9.3 % Normal No Sep 24 /100 informati 2017 7:20 leukocyte on in AM s in source Blood by data Automated count Platelet 7.4 - fl Normal No Oct 03 mean 10.4 informati 2017 7:20 volume on in AM [Entitic source volume] data in Blood by Automated count Platelets 142 - 424 K/mm3 Normal No Sep 24 informati 2016 7:20 [#/volume on in AM ] in source Blood data Erythrocy 4.2 - 5.4 M/mm3 Normal No Sep 24 eusebio informati 2017 7:20 [#/volume on in AM [...] No Sep 12 min Estab. informati informati 2017 8:25 [Mass/vol on in on in AM ume] in source source Urine data data Albumin/C 0.0 - No High INFCE Sep 21 reatinine 30.0 informati Result 2017 8:25 [Mass on in Units: AM ratio] in source mg/g Urine data creatPerf ormed at: - [facility] [address] [address] [address] [place], [place] [id number] Plant Tender: Omero Field PhD, Phone: [phone] Creatinin Not mg/dL No No Sep 21 e Estab. informati informati 2017 8:25 [Mass/vol on in on in AM ume] in source source Urine data data 25-Hydroxyvitamin D [Mass/volume] in Serum or Plasma Observa Value Referen Units Interpr Notes Date tion ce etation Range 25-Hydrox 30.0 - ng/mL Low Vitamin D [place] 12 yvitamin 100.0 2016 8:25 D deficienc AM [Mass/vol y has ume] in been Serum or defined Plasma by the [place] [facility] and an Endocrine Society practice guideline as alevel of serum 25-OH vitamin D less than 20 ng/mL (1,2).The Endocrine Society went on to further define vitamin Dinsuffic iency as a level between 21 and 29 ng/mL (2).1. IOM (Institut e of Medicine) . 2010. Dietary reference intakes for calcium and D. [place]: [employer].2. Jacky MF, [place], Cinthia Longo IZQUIERDO, et al.Evalua tion, treatment , and preventio n of vitamin Ddeficien cy: an Endocrine Society clinical practiceg uideline. JCEM. 2010; 96(7):191 1-30.Perf ormed at: - [facility] [address] [address] [address] [place], [place] [id number] [employer] T[employer]: Omero Field PhD, Phone: [phone] Comprehensive metabolic 2000 panel in Serum [...] 98 - 107 mmoL/L Normal No Sep 12 [Moles/vo informati 2016 8:25 lume] in on [...] ML/MIN No REFERENCE Sep 21 informati RANGE: 2016 8:25 glomerula on in >60 AM r [...] - 5.1 mmoL/L Normal No Sep 21 inform2016 8:25 [Moles/vo on in AM lume] in source Serum or data Plasma Sodium 136 - 145 mmoL/L Normal No Sep 21 [Moles/vo informati 2016 8:25 lume] in on in AM Serum or source Plasma data Aspartate 15 - 37 U/L Low No Sep 21 inform2016 8:25 aminotran on in AM sferase source [...] Cholester 0 - 130 mg/dL Normal No Sep 21 ol in LDL informati 2016 8:25 on in AM [Mass/vol source ume] in data Serum or Plasma by calculati on Triglycer 30 - 200 mg/dL Normal No Sep 21 bronson informati 2016 8:25 [Moles/vo on in AM [...] 0.4 K/mm3 Normal No Sep 21 ls informati 2016 8:25 [#/volume on in AM [...] No Sep 21 t [Volume 47.0 informati 2016 8:25 on in AM Fraction] source of Blood data Hemoglobi 12.2 - g/dL Normal No Sep 21 n 16.2 informati 2016 8:25 [Mass/vol on in AM ume] in source Blood data Lymphocyt 0.7 - 4.5 K/mm3 Normal No Sep 21 es informati 2016 8:25 [#/volume on in AM ] in source Unspecifi data ed specimen by Automated count Lymphocyt 10 - 50.0 % Normal No Sep 21 es informati 2016 8:25 [#/volume on in AM ] in source Unspecifi data ed specimen by Automated count Erythrocy 27 - 31.2 pg Normal No Sep 21 te mean informati 2016 8:25 corpuscul on in AM [...] 0.1 - 1.0 K/mm3 Normal No Sep 21 informati 2016 8:25 [#/volume on in AM ] in source Blood by data Automated count Monocytes 1.7 - 9.3 % Normal No Sep 12 /100 informati 2017 8:25 leukocyte on in AM s in source Blood by data Automated count Platelet 7.4 - fl Normal No Sep 21 mean 10.4 informati 2016 8:25 volume on in AM [Entitic source volume] data in Blood by Automated count Platelets 142 - 424 K/mm3 Normal No Sep 12 informati 2017 8:25 [#/volume on in AM ] in source Blood data Erythrocy 4.2 - 5.4 M/mm3 Normal No Sep 12 eusebio informati 2016 8:25 [#/volume on in AM ] in source Amniotic data fluid Erythrocy 11.5 - % Normal No Sep 21 te 17.5 informati 2016 8:25 distribut on in AM ion width source [Entitic data volume] by Automated count Leukocyte 4.8 - K/MM3 Normal No Sep 21 s 10.8 informati 2016 8:25 [#/volume on in AM ] in source Blood data Hemoglobin A1c in Blood Observa Value Referen Units Interpr Notes Date tion ce etation Range Hemoglo 7.2 0.0 - % High < 6% Sep 21 bin A1c 7.0 NON-DIONISIO 2017 in BETIC 8:25 AM Blood LEVEL< 7% CONTROL LED DIABETI C LEVEL> 8% POORLY CONTROL LED DIABETI C LEVEL
--- OUTSIDE RECORDS SUMMARY | 2017-03-18 16:04 | External Medical Summary Rpt ---
Author Author ASHLEY Leon, [employer] Organization [employer] Address Unknown Phone Unavailable Results Cobalamin (Vitamin B12) [Mass/volume] in Serum Observa Value Referen Units Interpr Notes Date tion ce etation Range Cobalamin 211 - 946 pg/mL High Performed Feb 26 (Vitamin at: CB 2016 7:13 B12) - [facility] AM [Mass/vol ume] in [id number] Serum 0 [place], [place] [id number] Hog Tender: Omero Field PhD, Phone: [phone] 25-Hydroxyvitamin D [Mass/volume] in Serum or Plasma Observa Value Referen Units Interpr Notes Date ti ce etation Range 25-Hydrox 30.0 - ng/mL No Vitamin D Feb 26 yvitamin 100.0 informati 2016 7:13 D on in deficienc AM [Mass/vol source y has ume] in data been Serum or defined Plasma by the [place] [facility] and an Endocrine Society [...] 96(7):191 1-30.Perf ormed at: CB - [facility] [id number] [place], [place] [id number] Hog Tender: Omero Field PhD, Phone: [phone] Comprehensive metabolic 2000 panel in Serum [...] AM ume] in source Serum or data [address] [place] [id number] Plasma 0 [place], [place] [id number] Hog Tender: Omero Field PhD, Phone: [phone] Renal function 2000 panel in Serum [...] been Serum or defined Plasma by the [place] ofMedicin e and an Endocrine Society practice guideline as alevel of serum 25-OH vitamin D less than 20 ng/mL (1,2).The Endocrine Society went on to further define vitamin Dinsuffic iency as a level between 21 and 29 ng/mL (2).1. IOM (Institut e of Medicine) . 2010. Dietary reference intakes for calcium and D. [place]: [employer].2. Jacky MF, Candido NC, Cinthia Longo IZQUIERDO, et al.Evalua tion, treatment , and preventio n of vitamin Ddeficien cy: an Endocrine Society clinical practiceg uideline. JCEM. 2010; 96(7):191 1-30.Perf ormed at: - [facility] [address] [address] [address] [place], [place] [id number] Hog Tender: Omero Field PhD, Phone: [phone] Urinalysis dipstick W Reflex Microscopic panel [...] Urine data creatPerf ormed at: - [facility] [address] [address] [address] [place], [place] [id number] Hog Tender: Omero Field PhD, Phone: [phone] Creatinin Not mg/dL No No Sep [...] been Serum or defined Plasma by the [place] [facility] e and an Endocrine Society practice guideline as alevel of serum 25-OH vitamin D less than 20 ng/mL (1,2).The Endocrine Society went on to further define vitamin Dinsuffic iency as a level between 21 and 29 ng/mL (2).1. IOM (Institut e of Medicine) . 2010. Dietary reference intakes for calcium and D. [place] hernández [place]: [employer].2. Jacky MF, Candido NC, Cinthia Longo IZQUIERDO, et al.Evalua tion, treatment , and preventio n of vitamin Ddeficien cy: an Endocrine Society clinical practiceg uideline. JCEM. 2010; 96(7):191 1-30.Perf ormed at: - [facility] [address] [address] [address] [place], [place] [id number] Hog Tender: Omero Field PhD, Phone: [phone] Comprehensive metabolic 2000 panel in Serum [...]
--- NOTE | 2017-03-18 17:08 | Urgent Treatment Center Report ---
History of Present Issue Date/Time Seen by Provider 03/18/17 1700 Visit Reason Pt arrived:Walked Presenting Problem:SORE THROAT, NAUSEA, HEADACHE X1 MONTH. Location if Accident: Onset of symptoms date/time:02/16/1710/26/999 or onset unknown for: Have you (or family members/close friends) recently traveled outside the [place]? N If Yes, where/when: Have you had exposure to infectious disease within the past month? TB? Other? Specify: Patient state that she has been having sinus pain and pressure now on and off for over a month State that she has taken a zpack and steroids and she got feeling better however after about a week symptoms returned and was worse than they was initially State that she has continued to have problems since States that now she is also having sore throat nausea and headache on and off for over a month ALLERGIES Coded Allergies: Sulfa (Sulfonamide Antibiotics) (Mild, HIVES, ITCHING 04/06/16) amoxicillin (From AUGMENTIN) (Mild, NA-NAUSEA 05/29/16) clavulanic acid (From AUGMENTIN) (Mild, NA-NAUSEA 05/29/16) hydrocodone (From NORCO) (Mild, HIVES, ITCHING 04/06/16) naproxen (Mild, HIVES, ITCHING 04/06/16) Home Medications Active Scripts Azithromycin (Zithromax) 250 MG PO DAILY #6 TAB Prov: 02/21/17 Fluticasone Propionate (Flonase Allergy Relief) 9.9 ML NS DAILY 14 Days Prov: 02/21/17 Reported Medications Metformin HCL (Metformin) 500 MG PO BID Losartan Potassium (Losartan 100MG) 100 MG PO DAILY OXYBUTYNIN CHLORIDE (Oxybutynin 5MG Tab) 5 MG PO BID Alprazolam (Xanax 0.25MG) 0.25 MG PO BID Glimepiride (Glimepiride 4MG Tablet) 4 MG PO DAILY #30 Rosuvastatin Calcium (Crestor) 10 MG PO QHS Esomeprazole Magnesium (Nexium) 40 MG PO DAILY CHOLECALCIFEROL (VITAMIN D3) (Vitamin D) 50,000 IUNITS PO DAILY History Medical History General CAD? No Angina: Yes [place]: No Hypertension? Yes Hyperlipidemia? No CHF? No DVT? No PE? No COPD? No Asthma? No Anemia? Yes GERD? No Gastric ulcers? Yes GI Bleed? No Hernia? No Thyroid Problems? No Hypothyroidism? No CVA? No Seizures? No Diabetes? Yes Insulin Dependent: No Insulin Pump: No Home FSBS? Yes Renal Insuffiency? No UTI? Yes Stones? No BPH? No GB Disease: No Nephritic Syndrome? No Asplenia? No Hepatitis? No Sickle Cell Disease? No Arthritis? Yes Migraines? No Cataracts? No Glaucoma? No MRSA? No HIV? No TB? No Anxiety? Yes Depression? Yes Cancer? No More? Yes Additional hx: DEGENERATIVE ARTHRITIS Immunization HX Ped.Immunizations UTD Yes DT/Tetanus 1-4 YRS Flu LAST YEAR Pneumonia NEVER Surgical Hx Previous Surgery?Y D & C Tubal Ligation CONE BX BARTHOLIN'S CYST HYSTERECTOMY 2000 CARPEL TUNNEL SURGERY HEART CATH ENDOCSOPY COLONOSCOPY [employer] Hx LMP N/A Family History Family HX Diabetes Yes CAD No Hypertension No Hyperlipidemia No Cancer No TB Yes Social History Smoking Hx Smoker: Current Every Day Smoker Tobacco: Yes Type Cigarettes Packs/day < 1 Pack Alcohol Alcohol: No Review of Systems All Other Systems Reviewed and Negative ENT nose congestion, throat pain. Respiratory cough Physical Exam Vital Signs Vital Signs Date Time Temp Pulse Resp B/P Pulse O2 O2 Flow FiO2 Ox Delivery Rate 03/18 1648 97.9 71 18 147/79 98 General Appearance normal appearance, WD/WN, no apparent distress Respiratory Status Yes: trachea midline, chest symmetrical, non tender chest. No: respiratory distress. Lung Sounds bilateral: normal breath sounds, lungs clear. Cardiovascular normal exam, regular rate/rhythm, no peripheral edema Neurologic alert, normal exam, oriented x 3 Medical Decision Making LABS/Meds/Orders Pt receiving controlled substance in ED? No Results/Orders Laboratory Tests 03/18/17 1659: Group A Strep Screen NOT DETECTED Current Medication Orders Sig/Octavio Start time Last Medication Dose Route Stop Time Status Admin Methylprednisolone 125 MG ONCE ONE 03/18 1730 AC Sodium Succinate IM 03/18 1731 Methylprednisolone 0 .STK-MED ONE 03/18 1723 DC Sodium Succinate .ROUTE Orders Procedure Date/time Status UTC STREP SCREEN 03/18 165 Complete Departure Departure Time of Disposition 1725 Disposition DC Home or Self Care(routine) Clinical Impression Primary Impression: Sinusitis Qualifiers: Sinusitis location: frontal Chronicity: unspecified Qualified Code: J32.1 - Chronic frontal sinusitis Condition STABLE Referrals Karan MD,Germán Chakraborty (Family): 3 Days-Call Office if no improvement or worsening of symtpoms Patient Instructions DI for Sinus Headache, Sinus Headache, Sinusitis Additional Instructions Start antibiotic. Sinus infections may take 2-3 days to notice much improvement so be sure to use conservative measures as discussed for symptoms Flonase 2 spray in each nostril daily to help with nasal congestion, sinus an ear pressure/inflammation Lots of Fluids Sleep elevated Humidifer/vaporizer Discharge Counseling Counseled pt/family regarding diagnosis, test results, home care, follow up needs Prescriptions Current Visit Scripts Doxycycline Hyclate (Vibramycin) 100 MG PO BID #14 CAP at 8703
[2017-03-18] MEDS ORDERED: DOXYCYCLINE HY100 M4 PO (17:25)
[2017-03-18 17:31] VITALS: BP 147/79
== END 2017-03-18 17:36 | disposition home or self-care (01) ==
LOC: UTC 15:51
DX: J32.1 Chronic frontal sinusitis (principal)